=== PATIENT | female | born 1950 | race Caucasian/White ===

== ENCOUNTER 2016-03-15 08:00 | Outpatient (CLI) | payer BC ==
[2016-03-18 18:10] LABS: HCVGENO - HEP C QUANT HCV Not Detected IU/mL (())
== END 2016-03-15 23:59 | disposition home or self-care (01) ==
LOC: D.LABREF 08:00
PROVIDERS: Internal Medicine Gastroenterology
DX: B18.2 Chronic viral hepatitis C (principal)

== ENCOUNTER → 2016-08-26 12:18 | Outpatient (CLI) | payer BC | END | disposition home or self-care (01) | LOC: D.MAMMO 07-30 08:00 | DX: Z12.31 Encounter for screening mammogram for malignant neoplasm of breast (principal) ==

== ENCOUNTER → 2016-09-15 09:00 | Outpatient (CLI) | payer BC | END | disposition home or self-care (01) | LOC: D.RAD 08-31 08:30 → D.MRI 08-31 09:30 → D.RAD 09:00 | DX: M25.511 Pain in right shoulder (principal) ==

== ENCOUNTER 2016-10-08 18:08 | Observation (INO) | payer BC ==
[~2016-10-08] VITALS: Ht 165.1 cm; Wt 74.8 kg
--- NOTE | ~2016-10-08 | CN ---
PATIENT NAME:MICHELLE SAUCEDO MEDICAL RECORD: [id number] : 54 LOCATION:D. D.2115 ADMIT DATE: 10/08/16 ACCOUNT: [id number] CONSULTING PHYSICIAN: CHANO BURNS MD REFERRING PHYSICIAN: MOON MORRIS MD DATE OF CONSULTATION: 10/09/2016 Cardiology Consultation ADMITTING DIAGNOSES: 1. Angina. 2. Transient ischemic attack. 3. Hypertension. 4. Chronic NSAID use. HISTORY OF PRESENT ILLNESS: Mrs. Saucedo presented earlier to our office with increasing anginal symptomatology. She was set for cardiac catheterization next week. She now presents with 2 episodes of left-sided weakness that were approximately 5 minutes each. This was associated with hypertensive response with systolic blood pressures in the 190s. She is on Maxzide for blood pressure, no other agents. Her systolic blood pressure is now in the 120s. Each episode was associated with a tingling and left-sided weakness of the left upper extremity as well as lower extremity. Each episode resolved spontaneously after approximately 5 minutes. She presented to the Emergency Room and she has had no further episodes. Her troponin is normal. PHYSICAL EXAMINATION: GENERAL APPEARANCE: Well-nourished, well-developed, appears stated age. Level of distress, comfortable. PSYCHIATRIC: Mental status, alert, normal affect. Orientation, oriented to time, place and person. EYES: Lids and conjunctiva, noninjected. No discharge, no pallor. ENT: Lips, teeth, gums, normal dentition. Oropharynx, no cyanosis, no pallor. NECK: Carotid arteries, bilateral normal upstroke, no bruits, no thrills. JUGULAR VEINS: No jugular venous pressure or distention. CERVICAL LYMPH NODES: Nontender, nonenlarged. THYROID: Not enlarged. Nontender. No nodules. LUNGS: Respiratory effort, unlabored. CHEST: Normal curvature. No thoracic deformity. No chest wall tenderness. Percussion, resonant. Auscultation, clear. No wheezes, no rales, no rhonchi. CARDIOVASCULAR: Precordial exam, nondisplaced. No heaves or pericardial thrills. Rate and rhythm, regular. Heart sounds, normal S1, normal S2. No S3, no gallop, no rub. Systolic murmur, not heard. Diastolic murmur, not heard. EXTREMITIES: No cyanosis, no edema. Peripheral pulses, full and equal in all extremities, except as noted. No bruits appreciated. ABDOMEN: Soft, nondistended. Normal aorta. No bruit. Nontender. No masses. Liver, nontender, no hepatomegaly. Spleen, nontender, no splenomegaly. MUSCULOSKELETAL: No joint tenderness. No joint swelling. No erythema. NEUROLOGICAL: Normal gait, normal strength, normal tone. SKIN: Warm and dry. REVIEW OF SYSTEMS: The patient reports easy bruising but reports no swollen glands. The patient reports no fever, no night sweats, no significant weight gain, no significant weight loss. No significant exercise tolerance. The patient reports no dry eyes, no irritation, no vision change. Patient reports CONSULT REPORT [id number] MICHELLE SAUCEDO no difficulty hearing and no ear pain. Patient reports no frequent nose bleeds or nose and sinus problems. Patient reports on arm pain on exertion. No shortness of breath while lying down. No history of heart murmur. Patient reports no cough, no wheezing or coughing up blood. Patient reports no abdominal pain, no vomiting. Normal appetite. No diarrhea and not vomiting blood. No nausea and no constipation. Patient reports no incontinence. No difficulty urinating. No hematuria. No increased frequency. Patient reports no muscle aches. No weakness, no arthralgias, no back pain. No swelling of the extremities. Patient reports no abnormal mole, no jaundice, no rashes. Reports no loss of consciousness. No weakness and no numbness. No seizures, dizziness, or headaches. The patient reports no depression, no sleep disturbance, feeling safe in a relationship and no alcohol abuse. Patient reports on fatigue. Reports no runny nose or sinus pressure. No itching, no hives, and no frequent sneezing. OVERALL IMPRESSION: Continued chest pain, episodes of transient ischemic attack. We will proceed with coronary angiography. Further care depends upon findings of the angiography. TRANSINT:[id number] Voice Confirmation ID: [id number] DOCUMENT ID: [id number] CHANO BURNS MD CC: [id number] DICTATION DATE: 10/09/161108 NURSE MANAGER: 10/09/16 174 ADM IN [facility] [address] [place] [address]
--- NOTE | ~2016-10-08 | OP ---
PATIENT NAME: MICHELLE COOLEY MEDICAL RECORD: [id number] :54 LOCATION:D.M2 D.2115 ADMISSION DATE:10/08/16 SURGEON: CHANO BURNS MD DATE OF OPERATION: 10/09/2016 PROCEDURES: 1. PTCA stent LAD. 2. Intravascular ultrasound. 3. Left heart catheterization. 4. Selective coronary angiography. 5. Left ventriculogram. 6. Four-vessel carotid and vertebral angiography. INDICATION: Angina, coronary artery disease, TIA. PROCEDURE IN DETAIL: After informed consent was obtained, detailed explanation of risks, benefits as well as alternative therapies, the patient elected to proceed with angiogram and angioplasty. The right femoral area was prepped and draped in normal sterile fashion. The right femoral artery was cannulated via modified Seldinger technique with placement of 6-Romanian sheath. All catheters exchanged through this sheath. FINDINGS: Left four-vessel carotid subselection of each subclavian as well as the left carotid. Findings: Right side common internal and external carotids have mild plaquing, none greater than 20%, no flow-limiting stenosis. Vertebral arteries devoid of disease. Left system: The common internal and external carotids have mild plaquing, none greater than 20%, no flow-limiting stenosis. Vertebral arteries devoid of disease. LEFT HEART CATHETERIZATION: Left ventriculogram was performed in standard 30-degree NAVA view, reveals good cardiac wall motion throughout all segments. Overall ejection fraction estimated at 60%. SELECTIVE ANGIOGRAPHY: 1. Selective coronary angiography, left main showed no significant angiographic disease. 2. Left anterior descending has 80% stenosis in the mid vessel, otherwise only mild irregularities. 3. Left circumflex shows moderate irregularities, but no flow-limiting stenosis. 4. Right coronary has 60% stenosis in the proximal vessel confirmed by intravascular ultrasound. PTCA STENT OF THE LAD: The stent used is a 3.0 x 14 mm BioFreedom stent, this was a 12-mm lesion in 3-0 vessel with DAYDAY 3 flow before and after intervention. Result was 0% residual stenosis. OVERALL IMPRESSION: Successful percutaneous transluminal coronary angioplasty stent of the left anterior descending going from 80% initial stenosis to 0% residual stenosis. TRANSINT:[id number] Voice Confirmation ID: [id number] DOCUMENT ID: [id number] OPERATIVE REPORT [id number] MICHELLE COOLEY CHANO BURNS MD CC: [id number] DICTATION DATE: 10/09/16 1417 REPAIRER FINISHED METAL: 10/09/162131 ADM IN [place] [id number] [place] [id number]
--- NOTE | ~2016-10-08 | EC ---
PATIENT:MICHELLE COOLEY DATE OF SERVICE: 10/08/16 SEX: F MEDICAL RECORD: [id number] DATE OF : 54 LOCATION:D.M2 D.211 AGE OF PATIENT: 65 ADMISSION DATE: 10/08/16 REFERRING PHYSICIAN: INTERPRETING PHYSICIAN: CHANO FARMER MD ECHOCARDIOGRAM REPORT ECHO CHARGES 4 ECHO COMPLETE CLINICAL DIAGNOSIS: TIA HX OF HTN ECHOCARDIOGRAPHIC MEASUREMENTS (adult normal given) AC root (d.<3.7cm) 3.6 cm LV Septum d (<1.2 cm> 1.2 cm Valve Excursion 2.0 cm LV Septum (systole) 1.5 cm Left Atria (s.<4.0cm> 3.1 cm LVPW d(<1.2cm) 1.3 cm RV (d.<2.3cm) 3.1 cm LVPW (sytole) 1.9 cm LV diastole(<5.6CM) 5.0 cm MV E-F(>70mm/sec) cm LV systole 2.9 cm LVOT Diameter 2.0 cm MV exc.(>10mm) 1.4 cm Est.ejection fraction (50-75%) % Pericardial Effusion N DOPPLER: LVIT cm/sec A 100 cm/sec E 74.0 cm/sec LA cm/sec RVSP 33 mmHg LVOT 89 cm/sec AOP1/2T m/s Asc. Ao 115 cm/sec RVOT 93 cm/sec RA cm/sec PA 121 cm/sec AV Gradient Peak 8.38 mmHg AV Mean 3.86 mmHg AV Area 2.0 cm MV Gradient Peak 5.05 mmHg MV Mean 1.71 mmHg MV Area cm COMMENTS: Fuel Technician: Cristhian NGUYEN Emt Driver: 1 Dr. Farmer TAPE# PACS DATE OF SERVICE: 10/09/2016 Echocardiogram FINDINGS: 1. Left ventricular chamber size is within normal limits. Left ventricular systolic function is normal. Overall ejection fraction estimated at 60%. 2. Left atrium, right atrium and right ventricular chamber sizes are within normal limits. 3. Valvular structures have normal structure and motion. ECHOCARDIOGRAM REPORT [id number] MICHELLE COOLEY 4. Doppler interrogation only reveals mild tricuspid regurgitation. No other valvular insufficiency or stenosis. Pulmonary systolic pressure is preserved at 32 mmHg. 5. No evidence of pericardial effusion or left ventricular thrombus. 6. No cardiac source of neurologic emboli. TRANSINT:[id number] Voice Confirmation ID: [id number] DOCUMENT ID: [id number] CHANO FARMER MD CC: [id number] DICTATION DATE: 10/09/16 1308 EDITOR DICTIONARY: 10/09/161957 ADM IN [facility] [address] [place] [id number]
[2016-10-08 18:38] LABS: BASOPHILS 0.1 % (0-2); EOSINOPHILS 5.9 % (0-7); HEMATOCRIT 41.6 % (36.0-48.0); HEMOGLOBIN 14.7 g/dL (12-16); IMMATURE GRANULOCYTES 0.2 % (0-5); LYMPHOCYTES 46.2 % (15-50); MCH 30.1 pg (26.0-34.0); MCHC 35.3 g/dL (31.0-37.0); MCV 85.2 fL (80.0-100.0); MEAN PLATELET VOLUME 10.3 fL (7.4-10.4); MONOCYTES 7.6 % (2-11); PLATELET COUNT 182 10x3/uL (130-400); RBC 4.88 10x6/uL (4.00-5.40); RDW 12.8 % (11.5-14.5)
[2016-10-08 18:53] LABS: ALBUMIN 3.4 g/dL (3.4-5.0); ANION GAP 12.7 mmol/L (8-16); BILIRUBIN - TOTAL 0.62 mg/dL (0.2-1.3); CALCIUM 8.8 mg/dL (8.5-10.1); CARBON DIOXIDE 28.7 mmol/L (21.0-32.0); POTASSIUM - SERUM 4.4 mmol/L (3.5-5.1); PROTEIN - SERUM 7.5 g/dL (6.4-8.2)
[2016-10-08 19:00] VITALS: BP 169/74
--- NOTE | 2016-10-08 19:57 | NUR ---
REPORT RECEIVED FROM DIEUDONNE BETANCOURT.
--- NOTE | 2016-10-08 20:15 | NUR ---
ARRIVED TO FLOOR VIA WHEELCHAIR, ACCOMPANIED BY HOSPITAL STAFF AND FAMILY. PLACED ON TELEMETRY. CALL LIGHT IN REACH. WILL CONTINUE TO MONITOR. SEE NURSE ASSESSMENT.
--- NOTE | 2016-10-08 21:40 | NUR ---
SLY GUTIERREZ PAGED FOR SYMPTOMATIC HTN 169/74. AWAITING CALL BACK.
[2016-10-09] VITALS (7 sets, daily range): BP systolic 128–189; BP diastolic 65–94; Ht 165.1 cm; Wt 74.8 kg
[2016-10-09] MEDS ORDERED: IBUPROFEN800 MG PO (01:19)
[2016-10-09] MEDS ORDERED: SYNTHROID200 MC1 PO (01:19)
[2016-10-09] MEDS ORDERED: TRIAMT/HCTZ TAB 75- (01:21)
[2016-10-09] MEDS ORDERED: K-DUR20 MEQ PO (01:21)
[2016-10-09] MEDS ORDERED: PRAVASTATIN PO (01:23)
[2016-10-09] MEDS ORDERED: ZANAFLEX4 MG PO (01:24)
[2016-10-09] MEDS ORDERED: HYDROCODON-ACE1 EAC7 PO (01:26)
[2016-10-09] MEDS ORDERED: MELATONIN5 M3 PO (01:26)
[2016-10-09] MEDS ORDERED: BENADRYL25 MG PO (01:27)
[2016-10-09] MEDS ORDERED: KLONOPIN1 MG PO (01:28)
[2016-10-09] MEDS ORDERED: RESTORIL15 MG PO (01:28)
[2016-10-09] MEDS ORDERED: VITAMIN B-122500 MCG PO (01:29)
[2016-10-09] MEDS ORDERED: FISH OIL 1,2001 CAP PO (01:30)
--- NOTE | 2016-10-09 11:45 | NUR ---
TELEMETRY SR. CONSENTS SIGNED FOR [facility]. CALL LIGHT IN REACH. WILL CONT. PLAN OF CARE.
--- NOTE | 2016-10-09 13:28 | NUR ---
PRE-OPS GIVEN. TO SENIOR LIVING ADVISOR BY BED.
--- NOTE | 2016-10-09 14:48 | NUR ---
BACK FROM INFORMATICS CONSULTANT. VS WNL. RIGHT GROIN STABLE WITHOUT BLEEDING OR HEMATOMA. WILL MONITOR.
[2016-10-10] VITALS: BP 124/58
[2016-10-10 04:00] VITALS: BP 139/66
--- NOTE | 2016-10-10 05:44 | NUR ---
PT WITH ROUTINE LABS ORDERED FOR 0500 AND LABS ORDERED FOR STUDY ORDERED AT 0800. AGREED WITH FIELD MAP EDITOR THAT ALL LABS TO BE DRAWN AT 0800 D/T STUDY. PT UPDATED ON POC AND SHE VERBALIZES UNDERSTANDING.
--- NOTE | 2016-10-10 07:20 | NUR ---
PT SITTING UP IN BED ON COMPUTER DENIES ANY NEEDS WILL CONT TO MONITOR
[2016-10-10 08:10] LABS: BASOPHILS 0.1 % (0-2); EOSINOPHILS 4.9 % (0-7); HEMOGLOBIN 13.4 g/dL (12-16); IMMATURE GRANULOCYTES 0.1 % (0-5); LYMPHOCYTES 30.5 % (15-50); MCH 29.8 pg (26.0-34.0); MCHC 34.4 g/dL (31.0-37.0); MCV 86.7 fL (80.0-100.0); MEAN PLATELET VOLUME 9.4 fL (7.4-10.4); NEUTROPHILS 57.4 % (40-80); PLATELET COUNT 153 10x3/uL (130-400); WBC 7.3 10x3/uL (4.8-10.8)
[2016-10-10 08:39] VITALS: BP 150/66
[2016-10-10 08:39] LABS: ALBUMIN 3.1 g/dL (3.4-5.0); ALKALINE PHOSPHATASE 61 U/L (46-116); ALT (SGPT) 25 U/L (10-68); CALCIUM 8.4 mg/dL (8.5-10.1); CARBON DIOXIDE 27.9 mmol/L (21.0-32.0); CHLORIDE - SERUM 105 mmol/L (98-107); CKMB 1.4 U/L (0.0-3.6); CREATINE KINASE 255 UL (21-215); GLUCOSE 96 mg/dL (74-106); MAGNESIUM - SERUM 1.5 mg/dL (1.8-2.4); PHOSPHOROUS 3.7 mg/dL (2.5-4.9); POTASSIUM - SERUM 3.8 mmol/L (3.5-5.1); PROTEIN - SERUM 6.5 g/dL (6.4-8.2); SODIUM 140 mmol/L (136-145); THYROID STIMULATING HORMONE 0.07 uIU/mL (0.36-3.74); eGFR NON AFRICAN AMERICAN 59 mL/min (90-120)
[2016-10-10 08:44] LABS: CALC OSMOLALITY 280 mosm/kg (275-300); UREA NITROGEN 19 mg/dL (7-18)
[2016-10-10 08:45] LABS: TROPONIN-I 0.585 ng/mL (0.000-0.060)
--- NOTE | 2016-10-10 09:15 | NUR ---
TALKED WITH DR VILLALTA CARDIO DIRECTOR OF CUSTOMER SERVICE FOR [facility] ABOUT PT ELEVATED TROPONIN. SAID R/T HEART CATH YESTERDAY. NO FURTHER ACTION NEEDED.
--- NOTE | 2016-10-10 09:49 | NUR ---
PT WALKING AROUND FLOOR SELF NO COMPLAINTS
[2016-10-10 12:05] LABS: LDL-HDL RATIO 1.8 ratio (1.5-3.5)
[2016-10-10 13:00] VITALS: BP 160/62
[2016-10-10] MEDS ORDERED: PLAVIX75 MG PO (14:36)
[2016-10-10] MEDS ORDERED: METOPROLOL TART25 MG PO (14:36)
[2016-10-10] MEDS ORDERED: SYNTHROID200 MC1 PO (14:37)
--- NOTE | 2016-10-10 16:04 | NUR ---
WENT OVER DC PAPERWORK WITH PT PT VERBALIZES UNDERSTANDING DC PIV WITH CATH TIP INTACT DC TELE AND RETURNED TO ASSIGNER. SCRIPTS CALLED IN TO [facility]. PT GETTING DRESSED THEN WILL GO HOME WITH FRIEND.
== END 2016-10-10 16:34 | disposition home or self-care (01) ==
LOC: D.ER 18:08 → OBSVTIME 19:25 → D.M2 19:25
PROVIDERS: Emergency Medicine; ADMIT Family Medicine
DX: I66.01 Occlusion and stenosis of right middle cerebral artery (principal); I25.119 Atherosclerotic heart disease of native coronary artery with unspecified angina pectoris; I16.0 Hypertensive urgency; R00.2 Palpitations; E78.5 Hyperlipidemia, unspecified; E03.9 Hypothyroidism, unspecified; Z00.6 Encounter for examination for normal comparison and control in clinical research program

== ENCOUNTER → 2017-01-18 16:22 | Outpatient (CLI) | payer BC ==
[2016-10-09 12:57] VITALS: BMI 27.4
[~2017-01-18 16:22] MED LIST: ATARAX 25 MG TA25 MG PO; BAYER ASPIRIN325 MG PO; BENADRYL25 MG PO; CARDIZEM60 MG PO; ELIQUIS2.5 MG PO; FISH OIL 1,2001 CAP PO; FUROSEMIDE20 MG PO; HYDROCODON-ACE1 EAC7 PO; IBUPROFEN800 MG PO; K-DUR20 MEQ PO; KLONOPIN0.5 MG PO; MAXZIDE 75/501 TAB PO; MELATONIN5 MG PO; METOPROLOL TART25 MG PO; MULTIPLE VITAMI1 TA1 PO; OXYCODONE HCL5 MG PO; OXYCONTIN10 MG PO; PEPCID20 MG PO; PLAVIX75 MG PO; PRAVASTATIN SOD10 MG PO; RESTORIL15 MG PO; SYNTHROID200 MC1 PO; SYNTHROID300 MCG PO; VIBRAMYCIN 100100 MG PO; VITAMIN B-122500 MCG PO; VITAMIN C1000 MG PO; ZANAFLEX4 MG PO; ZANAFLEX6 MG PO
== END | disposition home or self-care (01) ==
LOC: D.LABREF 16:22
DX: M17.0 Bilateral primary osteoarthritis of knee (principal); Z11.8 Encounter for screening for other infectious and parasitic diseases

== ENCOUNTER 2017-01-20 10:00 | Inpatient (IN) | payer BC ==
[~2017-01-20] VITALS: Ht 162.6 cm; Wt 77.3 kg
[2017-01-20 03:09] LABS: BASOPHILS 0.2 % (0-2); EOSINOPHILS 6.5 % (0-7); HEMATOCRIT 41.5 % (36.0-48.0); HEMOGLOBIN 14.6 g/dL (12-16); IMMATURE GRANULOCYTES 0.1 % (0-5); MCH 29.7 pg (26.0-34.0); MCHC 35.2 g/dL (31.0-37.0); MCV 84.3 fL (80.0-100.0); MONOCYTES 7.3 % (2-11); NEUTROPHILS 45.9 % (40-80); PLATELET COUNT 168 10x3/uL (130-400); RBC 4.92 10x6/uL (4.00-5.40); RDW 13.1 % (11.5-14.5); WBC 8.3 10x3/uL (4.8-10.8)
[2017-01-20 03:13] LABS: ANION GAP 12.1 mmol/L (8-16); CARBON DIOXIDE 27.3 mmol/L (21.0-32.0); CREATININE - SERUM 1.2 mg/dL (0.6-1.3); POTASSIUM - SERUM 3.4 mmol/L (3.5-5.1)
[2017-01-20 03:18] LABS: INR 0.98 (0.85-1.17); PROTIME 12.6 SECONDS (11.6-15.0)
[2017-01-20 05:30] LABS: APPEARANCE CLEAR (CLEAR); BILIRUBIN NEGATIVE (NEGATIVE); COLOR YELLOW (YELLOW); GLUCOSE NEGATIVE (NEGATIVE); KETONE NEGATIVE (NEGATIVE); NITRITE POSITIVE (NEGATIVE); PROTEIN NEGATIVE (NEGATIVE); SPECIFIC GRAVITY 1.015 (1.005-1.020); UROBILINOGEN NORMAL (NORMAL)
[2017-01-20 05:31] LABS: BACTERIA MANY /hpf (NONE SEEN); EPITHELIAL CELLS 0-5 /hpf (0-5); RED CELLS - URINE 0-5 /hpf (0-5)
[2017-01-20 08:23] LABS: ANION GAP 18.5 mmol/L (8-16); BILIRUBIN - TOTAL 0.37 mg/dL (0.2-1.3); CALCIUM 9.3 mg/dL (8.5-10.1); CARBON DIOXIDE 25.9 mmol/L (21.0-32.0); CREATININE - SERUM 1.2 mg/dL (0.6-1.3); POTASSIUM - SERUM 3.4 mmol/L (3.5-5.1); PROTEIN - SERUM 7.9 g/dL (6.4-8.2)
--- NOTE | 2017-01-20 08:57 | NUR ---
SUSANNAH NOTE: PATIENT STATES DR. MAYFIELD AWARE OF ABNORMAL URINE RESULTS.
[~2017-01-20 10:00] MED LIST changes: -ATARAX 25 MG TA25 MG PO; -ELIQUIS2.5 MG PO; -OXYCODONE HCL5 MG PO; -OXYCONTIN10 MG PO; -VIBRAMYCIN 100100 MG PO
[2017-01-22 09:23] VITALS: BP 134/93; BMI 29.2
[2017-01-22 10:27] LABS: APPEARANCE CLEAR (CLEAR); BILIRUBIN NEGATIVE (NEGATIVE); COLOR YELLOW (YELLOW); EPITHELIAL CELLS RARE /hpf (0-5); GLUCOSE NEGATIVE (NEGATIVE); KETONE NEGATIVE (NEGATIVE); NITRITE NEGATIVE (NEGATIVE); PROTEIN NEGATIVE (NEGATIVE); RED CELLS - URINE RARE /hpf (0-5); SPECIFIC GRAVITY 1.015 (1.005-1.020); UROBILINOGEN NORMAL (NORMAL); WHITE CELLS - URINE 0-5 /hpf (0-5)
[2017-01-22 10:28] LABS: BACTERIA FEW /hpf (NONE SEEN)
--- NOTE | 2017-01-22 16:45 | NUR ---
RECEIVED TO ROOM 2210 FROM RECOVERY ROOM. VSS. EPIDURAL IN USE. DENIES ANY COMPLAINT OF PAIN AT THIS TIME. O2 2L NC IN USE. O2 SAT 100%. MILAN HOSE IN USE TO BILAT LEGS. DRESSINGS TO BILAT KNEES C/D/I. CHANDRA PATENT DRAINING YELLOW URINE. IV TO L FA PATENT. 1/2 NS INFUSING AT 100 CC/HR VIA PUMP.
[2017-01-22 16:48] VITALS: BP 113/58; BMI 29.2
--- NOTE | 2017-01-22 17:30 | NUR ---
WANTING TO FINISH DINNER BEFORE APPLYING CPM'S.
--- NOTE | 2017-01-22 19:00 | NUR ---
CPM ON PER AIDS
--- NOTE | 2017-01-22 19:15 | NUR ---
RECEIVED CARE FROM DAY NURSE. PT IN BED IN HIGH FOWLERS POSITION. CPM ON BILATERAL LEGS IN PLACE. EPIDURAL IN PLACE AND INFUSING. CONT PULSE OX IN PLACE. REPORTS NO NEEDS. CALL LIGHT AT SIDE. CHANDRA IN PLACE AND DRAINING CLEAR YELLOW URINE.
--- NOTE | 2017-01-22 19:30 | NUR ---
REPORTS SHAKING. HANDS COLD TO TOUCH. WARM BLANKET PROVIDED. ANASTHESIA NOTIFIED. VITALS STABLE. INSTRUCTED TO WATCH VITALS, SHAKING CAN OCCUR WITH EPIDURAL.
[2017-01-23] VITALS: BP 131/65
[2017-01-23 04:00] VITALS: BP 127/46
[2017-01-23 04:42] LABS: HEMATOCRIT 36.3 % (36.0-48.0); HEMOGLOBIN 12.7 g/dL (12-16); MCH 29.4 pg (26.0-34.0); MEAN PLATELET VOLUME 9.4 fL (7.4-10.4); RBC 4.32 10x6/uL (4.00-5.40); WBC 11.8 10x3/uL (4.8-10.8)
--- NOTE | 2017-01-23 05:44 | NUR ---
ASSESSED, PT IS ASLEEP WITH EASY RESPIRATIONS AND NO DISTRESS NOTED. DRESSING TO KNEE IN PLACE AND CLEAN. PILLOW HUGGED UP TO CHEST. THE BED IS LOW, RAILS UP X'S 2 WITH THE CALL LIGHT AT HAND.
--- NOTE | 2017-01-23 06:12 | OP ---
PATIENT NAME: MICHELLE COOLEY MEDICAL RECORD: [id number] :54 LOCATION:D.MS [place]2210 ADMISSION DATE:01/22/17 SURGEON: MOON MAYFIELD DO DATE OF OPERATION: 01/22/2017 PROCEDURE PERFORMED: Bilateral total knee arthroplasties. PREOPERATIVE DIAGNOSIS: Severe end-stage bilateral knee osteoarthritis. POSTOPERATIVE DIAGNOSIS: Severe end-stage bilateral knee osteoarthritis. INDICATIONS: Ms. Cooley is a 66-year-old female who has been treating this knee osteoarthritis for quite sometime. She has had everything conservative including injections and she was tired of it affecting her activities of daily living. When she got to the point where injections were not helping, she decided she wanted both knees done at the same time. I informed the patient I really do not like to do that, but at her behest, she wanted them done and we proceeded for with that. She was informed of the risks and benefits including a longer recovery time and high risk of infection and all the other risks that come along with doing both knees at the same time and she is okay with that. DESCRIPTION OF PROCEDURE: The patient was given epidural by anesthesia in the preoperative area and taken to the operative suite and laid in the supine position, given general anesthetic, given 1.25 grams of vancomycin preoperatively, both lower extremities were prepped and draped in a sterile fashion. A timeout was performed, everyone was in agreement of correct patient and were doing bilateral total knees. Once this was done, time out was performed, everyone was in agreeance. We commenced with the left knee. The incision was marked out with a marker and then the skin was covered with Ioban. The incision commenced in the midline down to the capsule. The Aquamantys was used to see any bleeders. This was done throughout the procedure. A capsulotomy was made with a new knife and a medial parapatellar approach. The patella was then everted and milled down in order to put the patella prosthesis and was calipered, seen to have adequate bone stock. Once this was done, the femur was exposed placing Hohmann retractors on either side of the femur and the distal femur was cut to 11 mm. Attention was then drawn to the tibia. The tibia was then cut as well 4 mm. After this was done, the knee was brought into an extended position and the menisci were cleared out of medial and lateral sides. Once this was done, the extension block was put into the knee and seemed to be fit well and the knee was not hyperextended. After this was done, the knee was flexed up and the femur was noted to be 62.5 and it seemed to have good coverage mediolateral as well. Then, when the 4-in-1 cutting block was placed on the left femur and the femur was cut, the anterior cut first and then the chamfer cut anteriorly, then posterior cut, posterior chamfer cut. This was then removed and then the bone cuts were removed as well. After this was done, the trial was put on the femur and then the tibia was put into place with a 10 poly, it was put through range of motion and the external rotation was marked on the tibial tray, this was then removed as well as the femur. Knee was brought into extension and the patella was drilled. After the patella was drilled, the knee was brought up into flexion and the tibia was sized to be 71. A 71 was then put into place and then punched. After it was punched and drilled, the tibia and femur were thoroughly irrigated, the cement was being mixed. We then put the cement in the tibia itself and then on the tibial prosthesis and then that was impacted onto the tibia. Excess cement was removed. As this was done, the tourniquet back up to the beginning and left lower extremity was OPERATIVE REPORT [id number] MICHELLE COOLEY exsanguinated with an Esmarch and the tourniquet was let up prior to the incision and back down to the tibia. After excess cement was taken off the tibia, it was impacted again and further excess cement was removed. The femur prosthesis of 60.5 was then put into place and a 10 poly was put in between them around the tibia and the knee was brought into extension, rested on the Jose stand. The patella was everted and the patella was then put into place with cement on either side of the patella prosthesis and the squeezer was put on this. The patient was given a gram of TXA at this point and the tourniquet was let down. Any bleeders were then cauterized with the Aquamantys very thoroughly as the cement dried. Once the cement was dried, we ranged the knee and tested for stability. A 10 poly seemed to be the perfect fit for this patient in the left knee. Tourniquet was let down at 50 minutes on the left, and the trial poly was removed, and the 10 E poly was put into place and the locking mechanism was put in place on that on the tibial tray. The wound was then thoroughly irrigated and dried well and Ivy was put into the knee joint itself. The knee was then brought into 90 degrees of flexion and the capsule was closed with #1 pop off Vicryl stitches in [id number] fashion. After this was done, the rest of the Ivy was placed on top of the capsule and the knee skin itself was closed with a 2-0 Vicryl in an inverted interrupted fashion and the skin was washed and thoroughly dried and a ZipLine was placed over that. Then, Adaptic, 4 x 4s, ABD, Webril, and Gary wrap were placed over that knee and then that knee was covered with three-quarter sheath. I then broke scrub and then returned and the right knee that had been previously prepped had been covered, and the left knee procedure was uncovered and reprepped with ChloraPrep. After this was done, the incision line was marked out and Ioban was placed over the knee. The skin was exposed. The right lower extremity was then exsanguinated with an Esmarch and the tourniquet was inflated. The tourniquet was up on the right side for 52 minutes total. After the tourniquet was inflated, the knee was brought into 90 degrees of flexion. The incision was made in the line. Again Aquamantys was used to coagulate any vessels. Careful dissection was made down to the capsule itself and a new knife was used to do a capsulotomy ,medial parapatellar approach. The knee was then brought into extension and some of the fat pad was removed and the patella was everted and milled down in order to fit the patellar prosthesis. Once this was done, the knee was brought into flexion and the femoral canal was entered with a drill and the distal femur cut was made at 11 mm. Following this, attention was then drawn to the tibia. Retractors were placed on either her side and the PCL retractor was put in place as well and a 4 mm of tibia was cut. This did not seem adequate and we cut 2 more off the tibia and the knee was brought into extension and with the knee in extension, the medial and lateral menisci were removed at that time and the Aquamantys was used in the posterior capsule to coagulate any bleeders that were there. After that was done, the extension block was put into place and it seemed to be we needed to cut a little more with tibial cutting device or guide was put back into place, cut 2 more off the tibia. Once this was done, the 10 extension block fit very well and was balanced medial and lateral with varus and valgus stress. The knee was then brought into flexion and the femur was measured to be a 62.5 as the other side was. The 4-in-1 cutting block was put into place at that time and the anterior cut was made as well as the chamfer cut anteriorly and posterior cut and posterior chamfer cut. The 4-in-1 cutting block was then removed and the knee was brought into extension. The patella was everted again and the holes were drilled for the patellar prosthesis. After this was done, the knee was brought into flexion and the tibia was exposed and measured to be 71 as well. A trial was put on the femur and the tibial tray was put into place and ranged and the external rotation was marked on the tibial tray. The tibia was then exposed having removed the trials of the femur and the OPERATIVE REPORT [id number] MICHELLE COOLEY L tibia and a 71 tibial tray was seen to be the correct one and this was put into place and punched and drilled while the cement was mixed. The tibia and femur were then thoroughly irrigated and cement was put into the tibia first and then on the tibial prosthesis and this was malleted into place and the excess cement was removed. Once this was done, the femur prosthesis was put on and the 10 poly was put in between the tibia and femur and this was brought into extension and the patella cement was put on the patella and patellar prosthesis and this was squeezed down with squeezer. All the excess cement was removed at that time from the patella as well as the tibia. After this was done, the tourniquet was let down and any bleeders that were seen were coagulated with the Aquamantys and documented. As the cement dried, the squeezer of the toe was removed and the 10 poly was put in place, seemed to be well balanced, and had a well balanced knee. No instability was noted in extension or flexion and seemed to be a very good fit. The 10 E-poly was then put into place after the tibial 10 trial was removed. After that, the E-poly was put in place with locking mechanism, was put on the tibial poly and the bar was locked into place. Again, the knee was thoroughly irrigated after this and dried well and the Ivy was put into the knee joint. The knee was brought into 90 degrees of flexion. The capsule was then closed with #1 Vicryls in [id number]-es-rmicn fashion. The top of the capsule was then irrigated and dried and the rest of the Ivy was put on that. The skin was closed with 2-0 Vicryl in inverted interrupted fashion. The tourniquet on this side again was up for 52 minutes. After the skin was closed with 2-0 Vicryl in inverted interrupted fashion, the skin was cleaned with a wet lap and then dried very thoroughly and a ZipLine was placed over the incision and then Adaptic, 4 x 4s, ABD, Webril, and Gary wrap were placed over the knee. The drapes were then taken down and knee high MILAN hose was placed on bilateral lower extremities. The patient was then awakened and taken to recovery in stable condition. Blood loss approximately 200 mL. TRANSINT:[id number] Voice Confirmation ID: [id number] DOCUMENT ID: [id number] MOON MAYFIELD DO at 0612 CC: [id number] DICTATION DATE: 01/22/17 1555 MONEY COUNTER: 01/22/17 1850 ADM IN [place] [id number] [place] [address]
--- NOTE | 2017-01-23 07:50 | NUR ---
PT AOX4 RESP EVEN AND NONLABORED PT DENIES NEEDS AT THIS TIME IV TO LEFT FOREARM PATENT AND INTACT AT THIS TIME SRX2 BED AT LOWEST SETTING CALL LIGHT WITHIN REACH WILL CONTINUE TO MONITOR
[2017-01-23 08:45] VITALS: BP 111/52
[2017-01-23 13:33] VITALS: BP 90/43
[2017-01-23 13:52] VITALS: Ht 162.6 cm; Wt 77.3 kg
[2017-01-23 16:45] VITALS: BP 117/44
--- NOTE | 2017-01-23 19:15 | NUR ---
RECEIVED CARE FROM DAY NURSE. REPORTS NO NEEDS.
--- NOTE | 2017-01-23 19:30 | NUR ---
PLACED ON CPM'S PER AIDS.
[2017-01-23 20:00] VITALS: BP 137/65
[2017-01-24] VITALS: BP 88/40
--- NOTE | 2017-01-24 03:00 | NUR ---
PT RESTING QUIETLY, EYES CLOSED. RESP EVEN, UNLABORED. IV INFUSING. CHANDRA CATH. NO DISTRESS NOTED. CONTINUE CONTINUOUS DRIER OPERATOR'S PLAN OF CARE.
[2017-01-24 04:00] VITALS: BP 101/60
[2017-01-24 06:17] LABS: HEMATOCRIT 33.7 % (36.0-48.0); HEMOGLOBIN 11.7 g/dL (12-16); MCH 29.8 pg (26.0-34.0); MCHC 34.7 g/dL (31.0-37.0); MEAN PLATELET VOLUME 9.7 fL (7.4-10.4); RBC 3.92 10x6/uL (4.00-5.40); RDW 13.6 % (11.5-14.5); WBC 11.1 10x3/uL (4.8-10.8)
--- NOTE | 2017-01-24 08:15 | NUR ---
AWAKE AND ALERT. ORIENTED X3. NO C/O AT THIS TIME. LUNGS ARE CLEAR BILATERALY, NO COUGH NOTED. REPORTED USE IF IS INSTRUCTED. SKIN IS INTACT WITHOUT REDNESS EXCEPT INCISIONS TO BILATERAL KNEES. WHICH HAVE A DRY INTACT DRESSING IN PLACE. IV TO LEFT FOREARM IS PATNET WITHOUT REDNESS AT INSERTION SITE. TEDS IN PLACE. ON CPM AT THIS TIME. CHANDRA PATENT WITH CLEAR YELLOW URINE. DENIES NEEDS.
[2017-01-24 09:11] VITALS: BP 129/49
--- NOTE | 2017-01-24 10:45 | NUR ---
VERY LITTLE RELIEF WITH USE OF OXY CONDONE. GIVEN 15MG TORADOL SLOW IVP FOR PAIN LEVEL 8. WILL MONITOR.
[2017-01-24 11:59] VITALS: BP 121/43
--- NOTE | 2017-01-24 12:00 | NUR ---
SLIGHT ELEVATIONS IN TEMP. GIVEN 1GM TYLENOL IV FOR PAIN MANAGEMENT WELL ELEVATIONS IN TEMP WILL MONITOR.
--- NOTE | 2017-01-24 12:55 | NUR ---
REQUESTED AND GIVNE 10MG OXY PO FOR C/O BILATERAL KNEE PAIN LEVEL 8. WILL MONITOR.
--- NOTE | 2017-01-24 12:55 | NUR ---
ATE MOST OF LUNCH. ASSISTED BACK TO BED PER THERAPY. REQUESTED AND GIVEN 10MG OXY IR PO FOR PAIN LEVEL 6. WILL MONITOR.
[2017-01-24 16:19] VITALS: BP 99/38
--- NOTE | 2017-01-24 19:15 | NUR ---
RECEIVED CARE FROM DAY NURSE. PT IN BILATERAL CPM. REPORTS NO NEEDS. CALL LIGHT AT SIDE. IV INFUSING TO PATENT LEFT FA.
[2017-01-24 20:00] VITALS: BP 132/52
--- NOTE | 2017-01-25 03:23 | NUR ---
LYING IN BED WITH EYES CLOSED. RESP EVEN AND UNLABORED. CALL LIGHT AT SIDE. HEELS BRIDGED ON PILLOWS. ICE TO BILATERAL KNEES. SCD'S IN PLACE.
[2017-01-25 09:57] VITALS: BP 98/50
[2017-01-25 12:57] VITALS: BP 124/51
--- NOTE | 2017-01-25 15:31 | NUR ---
Rehab Prescreening Consult recieved and the patient was visited. She meets IRF criteria and agrees to participate in the required therapy. She is a [employer] employee with [facility] insurance that will require a preauth as well as administrative approval. [facility] has initiated the preauth and faxed the information to [facility] for their review. The CM will obtain the approval from administration. Carrol Schafer RN Clinical Liaison, [facility]
--- NOTE | 2017-01-25 15:39 | NUR ---
ORDER RECEIVED THIS AM FOR ACUTE REHAB. REFERRAL TO [facility]UTE [facility]. LENO GRADY, REHAB SCREENER, CAME TO SPEAK WITH THE PATIENT. SHE WAS OOB IN THE CHAIR. SHE IS IN AGREEMENT WITH THE PLAN. TC TO DONOVAN PALUMBO, CASE MANGEMENT MULLING MACHINE OPERATOR, BY KOFFI GONZALEZ RN CM REGARDING AUTH FROM CFO [facility], FOR ACUTE REHAB AT [facility]. AWAIT APPROVAL.
[2017-01-25 16:31] VITALS: BP 127/59
--- NOTE | 2017-01-25 19:15 | NUR ---
RECIEVED SHIFT REPORT. PT IS LYING IN BED. ALERT AND ORIENTED AND ABLE TO VERBALIZE NEEDS. IV IS PATENT AND SALINE LOC AT THIS TIME. BILATERAL CPM'S ON. CHANDRA IS DRAINING URINE BY GRAVITY. DRESSINGS TO BILATERAL KNEE'S C/D/I. PT STATES PAIN IS 10/10. PT REQUESTING PAIN MEDICATION PRN FOR PAIN 10/10. NO FURTHER NEEDS ARE VOICED AT THIS TIME. WILL CONTINUE TO MONITOR. SIDE RAILS ARE UP X 2. BED IS IN LOWEST POSITION. BED ALARM ON FOR SAFETY. CALL LIGHT IN REACH.
[2017-01-25 20:00] VITALS: BP 138/65
--- NOTE | 2017-01-25 21:51 | NUR ---
SHIFT ASSESSMENT COMPLETED. NIGHT MEDS GIVEN WITH NO PROBLEMS. PT REQUESTING TO HAVE SCD'S OFF FOR A WHILE LONGER. NO FURTHER NEEDS AT THIS TIME. WILL MONITOR. SIDE RAILS X 2. BED LOW. BED ALARM ON. CALL LIGHT IN REACH.
[2017-01-26 04:00] VITALS: BP 112/55
[2017-01-26 06:38] LABS: BASOPHILS 0.1 % (0-2); EOSINOPHILS 5.3 % (0-7); HEMATOCRIT 32.6 % (36.0-48.0); HEMOGLOBIN 11.7 g/dL (12-16); IMMATURE GRANULOCYTES 0.3 % (0-5); LYMPHOCYTES 26.7 % (15-50); MCH 30.5 pg (26.0-34.0); MCHC 35.9 g/dL (31.0-37.0); MCV 84.9 fL (80.0-100.0); MEAN PLATELET VOLUME 9.9 fL (7.4-10.4); MONOCYTES 8.8 % (2-11); NEUTROPHILS 58.8 % (40-80); PLATELET COUNT 154 10x3/uL (130-400); RBC 3.84 10x6/uL (4.00-5.40); RDW 13.2 % (11.5-14.5)
[2017-01-26 06:42] LABS: ANION GAP 11.5 mmol/L (8-16); CALCIUM 8.3 mg/dL (8.5-10.1); CARBON DIOXIDE 27.7 mmol/L (21.0-32.0); POTASSIUM - SERUM 3.2 mmol/L (3.5-5.1)
--- NOTE | 2017-01-26 07:00 | NUR ---
REPORT RECIEVED ASSUMED CARE. PATIENT IN BED WITH IV INTACT. NO COMPLAINTS AT THIS TIME. CALL LIGHT WITHIN REACH.
--- NOTE | 2017-01-26 07:00 | NUR ---
REPORT RECIEVED ASSUMED CARE. PATIENT IN BED WITH IV INTACT. NO COMPLAINTS AT THIS TIME. CALL LIGHT WITHIN REACH.
--- NOTE | 2017-01-26 08:00 | NUR ---
ASSESSMENT COMPLETE, VS STABLE. NO COMPLAINTS AT THIS TIME. IV INTACT. CALL LIGHT WITHIN REACH. REFUSES BSCDS.
[2017-01-26 08:45] VITALS: BP 141/62
--- NOTE | 2017-01-26 11:45 | NUR ---
PATIENT UP IN CHAIR WITH NO COMPLAINTS. TEDS ON. FRIEND AT BEDSIDE. CALL LIGHT WITHIN REACH.
--- NOTE | 2017-01-26 12:15 | NUR ---
AYSHA NOTE: AYSHA SPOKE WITH DONOVAN PALUMBO AND SHE STATED SHERRY HUA APPROVED IP REHAB FOR PATIENT.
[2017-01-26 12:41] VITALS: BP 134/62
[2017-01-26] MEDS ORDERED: ELIQUIS2.5 MG PO (13:44)
[2017-01-26] MEDS ORDERED: ATARAX 25 MG TA25 MG PO (13:44)
[2017-01-26] MEDS ORDERED: OXYCONTIN10 MG PO (13:45)
[2017-01-26] MEDS ORDERED: OXYCODONE HCL5 MG PO (13:45)
[2017-01-26] MEDS ORDERED: VIBRAMYCIN 100100 MG PO (13:46)
--- NOTE | 2017-01-26 14:48 | NUR ---
Per Fax from Mariam at [facility]. Auth'd 7 days for acute inpatient rehab. Clinical U/D due on 02/01/17. or # [phone]. Auth # [id number]. Carrol Schafer RN Clinical Liaison, Rehab
--- NOTE | 2017-01-26 15:42 | NUR ---
Patient Name: MICHELLE COOLEY Admission Status: Elective Accout number: [id number] Admission Date: 01-22-2017 : 1950 Admission Diagnosis:BILATERAL PRIMARY OSTEOARTHRITIS OF KNEE Attending: MOON MAYFIELD Current LOS: 4 Anticipated DC Date: Planned Disposition: Inpatient Rehab Primary Insurance: [employer] [facility] Discharge Planning Comments: CM MET WITH PATIENT REGARDING D/C NEEDS AND PLANS. PATIENT IS DISCHARGING TODAY TO REHAB AT. PATIENT HAS NO STEPS OR STAIRS AT HOME. PATIENT HAS A WALKER AT HOME IF NEEDED. PATIENTS PCP IS DR. CAMARGO AND PHARMACY IS [facility]. CM WILL CONTINUE TO FOLLOW PATIENT WITH D/C NEEDS AND PLANS. PCP DR. CAMARGO [facility]- [phone] [facility] [phone] Business Segment Manager: [place] Is the patient Alert and Oriented? Yes 0 * How many steps to enter\exit or inside your home? 0 0 * PCP DR. CAMARGO 0 * Pharmacy [facility] 0 * ADLs Independent 0 * Equipment Walker 0 * List name and contact numbers for known caregivers / representatives who currently or will assist patient after discharge: [facility] [phone] 0 * Community resources currently utilized None 0 * Additional services required to return to the preadmission environment? Yes 0 * Can the patient safely return to the preadmission environment? Yes 0 * Has this patient been hospitalized within the prior 30 days at any hospital? No 0 Grand Total: 0
--- NOTE | 2017-01-26 16:55 | NUR ---
OT NOTE: PT COMPLETED BED MOB WITH INCREASED TIME TO COMPLETE TASK, PT COMPLETED BUE AROM EXS. THANK YOU, MARYANN GUO/Angelina
--- NOTE | 2017-01-26 17:00 | NUR ---
PATIENT DRESSING TO BILATERAL KNEES CHANGED. BOTH KNEE INCISIONS CLEAN AND DRY. SUTURES INTACT. NO SIGNS OF INFECTION. TELFA AND TEGADERM APPLIED PER DR. MAYFIELD. CHANDRA REMOVED. NO COMPLAINTS. TOLERATED WITH SMALL AMOUNT OF PAIN. CALL LIGHT WITHIN REACH.
== END 2017-01-26 19:21 | DRG 462 ==
LOC: D.SDCHOLD 01-22 08:24 → D.MS 01-22 08:24 → D.SDCHOLD 01-22 08:45 → D.MS 01-22 15:59
PROVIDERS: Anesthesiology; Family Medicine; ADMIT Orthopaedic Surgery
PROC: 0SRC0J9 Replacement of Right Knee Joint with Synthetic Substitute, Cemented, Open Approach (ICD-10-PCS; 2017-01-22)
PROC: 0SRD0J9 Replacement of Left Knee Joint with Synthetic Substitute, Cemented, Open Approach (ICD-10-PCS; principal; 2017-01-22 11:00)
DX: M17.0 Bilateral primary osteoarthritis of knee (principal); I10 Essential (primary) hypertension; E03.9 Hypothyroidism, unspecified

== ENCOUNTER 2017-01-26 18:57 | Inpatient (IN) | payer BC ==
[~2017-01-26] VITALS: Ht 162.6 cm; Wt 77.1 kg
[~2017-01-26 18:57] MED LIST changes: +ATARAX 25 MG TA25 MG PO; +ELIQUIS2.5 MG PO; +OXYCODONE HCL5 MG PO; +OXYCONTIN10 MG PO; +VIBRAMYCIN 100100 MG PO
[2017-01-26 19:30] VITALS: BP 133/57
[2017-01-26 19:36] VITALS: BP 133/57; BMI 29.2
--- NOTE | 2017-01-26 19:45 | NUR ---
PT IN BED WITH HOB UP FOR COMFORT. VISITORS AT BEDSIDE. POST OP DAY 3. CPM MACHINE TU USE 6HRS DAILY. ABOVE KNEE MILAN HOSE ON. TRAPEZE. CONTACTS AND DENTUES. NO O2. NO IV. LBM 01/21/17. CHANDRA CATH DC'D EARLIER TODAY PT HAS NOT VOIDED. BED IN LOWEST POSITION AND CALL LIGHT WITHIN REACH.
--- NOTE | 2017-01-26 20:50 | NUR ---
PATIENT IN BED. DENIES CURRENT NEEDS. ADMISSION ASSESSMENT CURRENTLY BEING CONDUCTED BY SUSAN BETANCOURT.
--- NOTE | 2017-01-26 21:45 | NUR ---
ASSISTED PT WITH CPM MACHINES.
--- NOTE | 2017-01-26 22:00 | NUR ---
PT ATTEMPTED TO VOID USING BED DAVALOS. PT HAS NOT VOIDEED SINCE DC OF CHANDRA CATH ON MS PT STATED AROUND "3:30PM."
--- NOTE | 2017-01-26 22:18 | NUR ---
PT STILL HAS 3HRS TO DO FOR CPM MACHINE. CALLED MED SURG AND SILVIO BETANCOURT STATED "WE'LL HAVE SOMEONE BRING THEM DOWN."
--- NOTE | 2017-01-27 00:27 | NUR ---
PT TRIED TO VOID AND WAS UNABLE. WILL DO BLADDER SCAN.
--- NOTE | 2017-01-27 00:39 | NUR ---
BLADDER SCAN SHOWED 674ML. WILL IN AND OUT CATH PT.
--- NOTE | 2017-01-27 01:19 | NUR ---
900ML FROM IN AND OUT CATH. WHILE DOIN IN AND OUT CATH CPM'S MACHINES WERE BROUGHT DOWN FROM MS. ASKED PT AFTER I DID THE CATH SHE WOULD LIKE TO DO CPM MACHINES AND SHE STATED "NO."
--- NOTE | 2017-01-27 04:20 | NUR ---
PT IN BED WITH HOB UP FOR COMFORT. EYES CLOSED. CHEST RISING AND FALLING. BED IN LOWEST POSITION AND CALL LIGHT WITHIN REACH.
[2017-01-27 07:34] LABS: BASOPHILS 0.1 % (0-2); EOSINOPHILS 4.6 % (0-7); HEMATOCRIT 33.4 % (36.0-48.0); HEMOGLOBIN 11.7 g/dL (12-16); IMMATURE GRANULOCYTES 0.5 % (0-5); LYMPHOCYTES 29.9 % (15-50); MCH 29.6 pg (26.0-34.0); MCV 84.6 fL (80.0-100.0); MEAN PLATELET VOLUME 8.7 fL (7.4-10.4); MONOCYTES 8.2 % (2-11); NEUTROPHILS 56.7 % (40-80); PLATELET COUNT 155 10x3/uL (130-400); RBC 3.95 10x6/uL (4.00-5.40); RDW 13.1 % (11.5-14.5); WBC 8.7 10x3/uL (4.8-10.8)
[2017-01-27 07:54] LABS: ANION GAP 10.2 mmol/L (8-16); CALCIUM 8.4 mg/dL (8.5-10.1); CARBON DIOXIDE 29.3 mmol/L (21.0-32.0); CREATININE - SERUM 1.1 mg/dL (0.6-1.3); POTASSIUM - SERUM 3.5 mmol/L (3.5-5.1)
[2017-01-27 08:48] VITALS: BP 119/61
[2017-01-27 13:16] VITALS: Ht 162.6 cm; Wt 77.1 kg
[2017-01-27 19:45] VITALS: BP 133/47
--- NOTE | 2017-01-27 20:00 | NUR ---
PT IN BED WITH HOB UP FOR COMFORT. VISITORS AT BEDSIDE. POST OP DAY 4. SCD'S AT NIGHT. TRAPEZE. CONTACTS AND DENTURES. NO O2. NO IV. BSC. CPM MACHINE. MILAN HOSE. BED IN LOWEST POSITION AND CALL LIGHT WITHIN REACH.
--- NOTE | 2017-01-27 23:45 | NUR ---
PATIENT RESTING IN BED, EYES CLOSED. HOB UP 45 DEGREES. CPM'S IN OPERATION TO BILAT LEGS AT THIS TIME. PATIENT APPEARS COMFORTABLE.
--- NOTE | 2017-01-28 00:05 | NUR ---
PT AWAKE, RATES PAIN 04/24, STATES "I FEEL A LOT BETTER", SCD'S PLACED ON AND WORKING PROPERLY, PT DENIES NEEDS, BED IN LOW POSITION, SIDE RAILS X 2, CALL LIGHT IN REACH
--- NOTE | 2017-01-28 03:24 | NUR ---
PT LYING IN BED. EYES CLSOED. CHEST RISING AND FALLING. BED IN LOWEST POSITON AND CALL LIGHT WITHIN REACH.
--- NOTE | 2017-01-28 05:18 | NUR ---
PT LYING IN BED. EYES CLOSED. RESPIRATIONS ARE EVEN AND UNLABORED. BED IN LOWEST POSITION AND CALL LIGHT WITHIN REACH.
--- NOTE | 2017-01-28 07:32 | NUR ---
RESTING QUIETLY IN BED. CALL LIGHT IN REACH. BED IN LOWEST POSITION.
[2017-01-28 08:08] VITALS: BP 117/58
--- NOTE | 2017-01-28 13:51 | NUR ---
SITTING UP IN W/C IN ROOM. DENIES NEEDS AT PRESENT
--- NOTE | 2017-01-28 16:33 | NUR ---
PATIENT ADMITTED TO REHAB FROM ACUTE FLOOR. DISCHARGE PLANS ARE FOR PATIENT TO RETURN HOME AT DISCHARGE. WILL CONTINUE TO FOLLOW WITH PATIENT.
--- NOTE | 2017-01-28 19:05 | NUR ---
PM ROUNDS MADE, PT UP TO BEDSIDE COMMODE WITH ASSISTANCE, PT INST TO USE CALLL LIGHT WHEN FINISHED, DORINA RUFFIN INFORMED THAT PT IS ON BEDSIDE COMMODE
[2017-01-28 19:30] VITALS: BP 133/58
--- NOTE | 2017-01-28 20:00 | NUR ---
PT BACK IN BED, ASSESSMENT PER FLOW SHEET, PT REPORTS FLATUS, NO BM AND VOIDING BY SELF WITH NO DIFFICULTY, PT RATES BILATERAL KNEE PAIN 09/24, INFORMED PT THAT I WILL ADM PAIN MED WHEN DUE, PT VERBALIZES UNDERSTANDING, DENIES NEEDS AT THIS TIME, BED IN LOW POSITION, SIDE RAILS X 2, CALL LIGHT IN REACH
--- NOTE | 2017-01-28 21:05 | NUR ---
PT UP ON BEDSIDE COMMODE AT THIS TIME, DORINA RUFFIN IN ROOM WITH PT
--- NOTE | 2017-01-28 22:52 | NUR ---
PT AWAKE, ADM 2100 MEDS AT THIS TIME, PT REPORTS PAIN /, OFFERED PT OXYCONTIN INSTEAD OF OXY IR, PT REQUESTED TO TRY THE OXYCONTIN, REPORTS THAT THE OXY IR IS NOT WORKING, PT SERVED FRESH H20 AND VANILLA PUDDING, DENIES FURTHER NEEDS, BED IN LOW POSITION, SIDE RAILS X 2, CALL LIGHT IN REACH
--- NOTE | 2017-01-29 00:05 | NUR ---
PT AWAKE, RATES PAIN 3/10, REPORTS THAT PAIN MED IS WORKING, SCD'S APPLIED AND WORKING PROPERLY, PT DENIES NEEDS AT THIS TIME, BED IN LOW POSITION, SIDE RAILS X 2, CALL LIGHT IN REACH
--- NOTE | 2017-01-29 01:45 | NUR ---
PT RESTING WITH EYES CLOSED, AROUSES TO SOFT VERBAL STIMULATION, OBTAINED TEMP, SEE FLOW SHEET, PT DENIES NEEDS OR PAIN AT THIS TIME, BED IN LOW POSITION, SIDE RAILS X 2, CALL LIGHT IN REACH
--- NOTE | 2017-01-29 02:20 | NUR ---
PT RESTING WITH EYES CLOSED, RESP QUIET, NO DISTRESS NOTED, LEFT UNDISTURBED AT THIS TIME, BED IN LOW POSITION, SIDE RAILS X 2, CALL LIGHT IN REACH
--- NOTE | 2017-01-29 04:27 | NUR ---
PT RESTING WITH EYES CLOSED, RESP QUIET, NO DISTRESS NOTED, LEFT UNDISTURBED AT THIS TIME, BED IN LOW POSITION, SIDE RAILS X 2, CALL LIGHT IN REACH, SCD'S CONTINUE ON AND WORKING PROPERLY
--- NOTE | 2017-01-29 05:16 | NUR ---
PT ADDICTIONS COUNSELOR LIGHT, PT PLACED ON BED DAVALOS, VOIDED APPROX 250 MLS, PT CLEANED UP WITH WET WARM WIPES, PT REQUESTS CPM, THIS RN AND SABA QUIROZ RN PLACED PT ON CPM, ADM PAIN MED PO PER MD ORDERS, SEE EMAR, PT DENIES FURTHER NEEDS, BED IN LOW POSITION, SIDE RAILS X 2, CALL LIGHT IN REACH
[2017-01-29 06:21] VITALS: BP 136/64
--- NOTE | 2017-01-29 06:25 | NUR ---
ADM 0600 MEDS PER MD ORDERS, VS OBTAINED, PT DENIES NEEDS AT THIS TIME, BED IN LOW POSITION, SIDE RAILS X 2, CALL LIGHT IN REACH
--- NOTE | 2017-01-29 06:51 | NUR ---
SHIFT REPORT TO DAY SHIFT
[2017-01-29 07:24] LABS: BASOPHILS 0.1 % (0-2); EOSINOPHILS 5.3 % (0-7); HEMATOCRIT 31.7 % (36.0-48.0); HEMOGLOBIN 11.1 g/dL (12-16); IMMATURE GRANULOCYTES 0.4 % (0-5); LYMPHOCYTES 22.6 % (15-50); MCH 29.9 pg (26.0-34.0); MCV 85.4 fL (80.0-100.0); NEUTROPHILS 61.6 % (40-80); PLATELET COUNT 183 10x3/uL (130-400); RBC 3.71 10x6/uL (4.00-5.40); RDW 13.1 % (11.5-14.5); WBC 9.3 10x3/uL (4.8-10.8)
[2017-01-29 07:34] LABS: CALCIUM 8.8 mg/dL (8.5-10.1); CARBON DIOXIDE 31.8 mmol/L (21.0-32.0); CREATININE - SERUM 1.1 mg/dL (0.6-1.3); POTASSIUM - SERUM 3.8 mmol/L (3.5-5.1)
--- NOTE | 2017-01-29 08:29 | NUR ---
SITTING UP EATING BREAKFAST. DENIES NEEDS.
[2017-01-29 09:34] VITALS: BP 128/62
--- NOTE | 2017-01-29 11:20 | NUR ---
Nutrition Follow Up: Pt stated that she continues with a poor appetite. She said that nothing sounds good to her. Pt is drinking Ensure. Pt is eating 40% meal avg of a regular diet. +BM 01/27/17. Wt stable. Meds noted including Lasix. Labs reviewed. Rec continue current diet. Will honor food preferences. Will continue to send Ensure TID. RD following.
--- NOTE | 2017-01-29 12:01 | NUR ---
EATING LUNCH IN ROOM. FRIEND IN ROOM WITH PT.
--- NOTE | 2017-01-29 18:13 | NUR ---
SITTING ON SIDE OF BED EATING SUPPER. DENIES INCREASED PAIN. PAIN MEDS GIVEN ORDERED AND ASK FOR. INCISION INTACT. NO DRAINAGE. NO S/S SWELLING OR INFECTION.
--- NOTE | 2017-01-29 19:45 | NUR ---
PT. IN BED WITH HOB UP FOR COMFORT AND IS WATCHING TV. ASSESSMENT COMPLETED. ASSISTED PT. TO BSC TO URINATE. PT. REQUESTING BED ALARM WAIVER FORM SO THAT IF SHE WANTS TO BE UP OR USE BSC SHE CAN. FORM WILL BE GIVEN FOR HER SIGNATURE. NO OTHER VOICED NEEDS AFTER PT. WAS REPOSITIONED IN BED FOR COMFORT. CALL LIGHT WITHIN REACH.
[2017-01-29 19:55] VITALS: BP 139/62
--- NOTE | 2017-01-29 23:10 | NUR ---
PT. IN BED WITH HOB UP FOR COMFORT AND IS AWAKE. PT. ON HER CELL PHONE AND ALSO HAS HER LAP TOP COMPUTER WITHIN REACH. NO VOICED NEEDS AT THIS TIME AND HER CALL LIGHT IS WITHIN REACH.
--- NOTE | 2017-01-30 03:03 | NUR ---
PT. IN BED WITH HOB UP FOR COMFORT. EYES CLOSED AND RESP. EVEN. CALL LIGHT WITHIN REACH.
[2017-01-30 08:00] VITALS: BP 117/63
--- NOTE | 2017-01-30 08:00 | NUR ---
SHIFT ASSMT COMPLETED.DENIES NEEDS.STATUS MUCH IMPROVED ON MOVING AND GETTING AROUND.SBA TO BSC NOTED.DRESSES SELF USING ADAPTIVE EQUIPMENT.
--- NOTE | 2017-01-30 12:00 | NUR ---
EATING LUNCH.DENIES NEEDS.
--- NOTE | 2017-01-30 16:00 | NUR ---
RESTING QUIETLY.PLAYING ON COMPUTER.
[2017-01-30 20:00] VITALS: BP 135/41
--- NOTE | 2017-01-30 20:16 | NUR ---
PT. IN BED WITH BILATERAL CPM'S ON AND HOB UP FOR COMFORT. PT. DENIES ANY NEEDS AT THIS TIME AND HAS HER CALL LIGHT WITHIN REACH.
--- NOTE | 2017-01-30 21:00 | NUR ---
PT IN BED WITH HOB UP FOR COMFORT. WATCHING TV. ALERT & ORIENTED. FEMALE VISITOR AT BEDSIDE. CPM'S TO BILATERAL LOWER EXTREMITIES IN PLACE AND ON. TRAPEZE. BED/CHAIR WAIVER. NO O2. NO IV. BED IN LOWEST POSIITON AND CALL LIGHT WITHIN REACH.
--- NOTE | 2017-01-31 01:00 | NUR ---
PT IN BED WITH HOB UP FOR COMFORT. EYES CLOSED. CHEST RISING AND FALLING. BED IN LOWEST POSTION AND CALL LIGHT WITHIN REACH.
--- NOTE | 2017-01-31 04:40 | NUR ---
PT IN BATHROOM. PT HAS BED/CHAIR ALARM WAIVER.
--- NOTE | 2017-01-31 08:00 | NUR ---
DENIES NEEDS.BREAKFAST GIVEN.DRSG TO KNEE'S IN PLACE.
[2017-01-31 08:43] VITALS: BP 118/70
--- NOTE | 2017-01-31 09:50 | NUR ---
PLACED ON CPM BILAT KNEE'S.
--- NOTE | 2017-01-31 12:00 | NUR ---
SITTING UP IN BED WITH CPM ON.
--- NOTE | 2017-01-31 13:00 | NUR ---
UP OOB TO SHOWER.COURT BAILIFF ASSISTING.
--- NOTE | 2017-01-31 19:17 | NUR ---
PT. IN BED WITH HOB UP FOR COMFORT. PT. WATCHING TV AND HAS NO VOICED NEEDS. CALL LIGHT IS WITHIN REACH.
--- NOTE | 2017-01-31 20:00 | NUR ---
PT IN BED WITH HOB UP FOR COMFORT. WATCHING TV. ALERT & ORIENTED. CPM'S TO BILATERAL LOWER EXTREMITIES IN PLACE AND ON. TRAPEZE. BED/CHAIR WAIVER. NO O2. NO IV. BED IN LOWEST POSITION AND CALL LIGHT WITHIN REACH.
[2017-01-31 20:29] VITALS: BP 131/54
--- NOTE | 2017-02-01 | NUR ---
PT LYING IN BED WITH HOB UP FOR COMFORT. EYES CLOSED. CHEST RISING AND FALLING. BED IN LOWEST POSITION AND CALL LIGHT WITHIN REACH.
--- NOTE | 2017-02-01 04:00 | NUR ---
PT LYING IN BED WITH HOB UP FOR COMFORT. EYES CLOSED. CHEST RISING AND FALLING. BED IN LOWEST POSITION AND CALL LGIHT WITHIN REACH.
[2017-02-01 07:11] LABS: BASOPHILS 0.1 % (0-2); EOSINOPHILS 3.6 % (0-7); HEMATOCRIT 33.4 % (36.0-48.0); HEMOGLOBIN 11.2 g/dL (12-16); IMMATURE GRANULOCYTES 1.1 % (0-5); LYMPHOCYTES 22.6 % (15-50); MCH 28.8 pg (26.0-34.0); MCHC 33.5 g/dL (31.0-37.0); MCV 85.9 fL (80.0-100.0); MEAN PLATELET VOLUME 9.1 fL (7.4-10.4); MONOCYTES 7.9 % (2-11); NEUTROPHILS 64.7 % (40-80); RBC 3.89 10x6/uL (4.00-5.40); RDW 13.1 % (11.5-14.5); WBC 8.4 10x3/uL (4.8-10.8)
[2017-02-01 07:18] LABS: PLATELET COUNT 274 10x3/uL (130-400)
[2017-02-01 07:23] LABS: CALCIUM 8.7 mg/dL (8.5-10.1); CARBON DIOXIDE 31.2 mmol/L (21.0-32.0); CREATININE - SERUM 1.2 mg/dL (0.6-1.3); POTASSIUM - SERUM 3.2 mmol/L (3.5-5.1)
--- NOTE | 2017-02-01 08:00 | NUR ---
SITTING UP IN BED EATING BREAKFAST. HAS CPM MACHINES ON X2. IS UP WALKING TO BATHROOM WITH WALKER.
[2017-02-01 08:53] VITALS: BP 107/50
--- NOTE | 2017-02-01 12:25 | NUR ---
SITTING UP IN W/C EATING LUNCH. PAIN MEDS GIVEN ORDERED AND REQUESTED.
--- NOTE | 2017-02-01 16:47 | NUR ---
CLINICALS FAXED TO MEDICAL MANAGEMENT AT [facility] AT AUTH # [id number] WITH A TENATIVE DISCHARGE DATE OF 02/05/17. FAX CONFORMATION RECIEVED
--- NOTE | 2017-02-01 20:10 | NUR ---
REST IN BED AND WATCH TV SHOW.
--- NOTE | 2017-02-01 21:45 | NUR ---
PATIENT'S PRIMARY NURSE CAME TO ME TO REPORT PATIENT REQUESTED A TOURNIQUET. WENT TO THAT HER MURSE DID NOT MISUNDERSTAND. PATIENT WANTS IT TO CLINICAL LABORATORY TECHNOLOGIST HER A BETTER FIRE INSPECTOR IN THE CAPS OF HER BEVERAGES. A TOURNIQUET WAS PROVIDED.
[2017-02-01 22:37] VITALS: BP 125/59
--- NOTE | 2017-02-02 01:56 | NUR ---
REST QUIETLY IN BED, CALL LIGHT IN REACH.
[2017-02-02 08:01] VITALS: BP 110/52
--- NOTE | 2017-02-02 10:06 | NUR ---
Nutrition Follow Up: Pt stated that her appetite remains fair. She said that she would like Ensure to be d/c. RD offered cafeteria menu and pt stated that she would like to order from that as an option. RD provided this to pt. Pt is eating 78% meal avg on a regular diet. +BM 02/01/17. Meds and labs reviewed. Rec continue current diet. Will provide cafeteria menu to pt. Will d/c Ensure. RD following.
--- NOTE | 2017-02-02 12:33 | NUR ---
SITTING UP IN ROOM EATING LUNCH. BANDAGES OFF BOTH KNEES AT PRESENT AT PT REQUEST. NO S/S INFECTION NOTED. USES WALKER FOR AMBULATION ASST.
--- NOTE | 2017-02-02 13:13 | RHP ---
PATIENT: MICHELLE COOLEY MEDICAL RECORD: [id number] ACCOUNT: [id number] LOCATION:[id number] : 54 ADMISSION DATE: 01/26/17 REHABILITATION HISTORY AND PHYSICAL EXAMINATION POST ADMISSION PHYSICIAN EXAMINATION POST-ADMISSION PHYSICAL EXAMINATION AND HISTORY AND PHYSICAL DATE OF ADMISSION: 01/26/2017 ADMITTING DIAGNOSES: Status post bilateral knee replacements, secondary to severe bilateral osteoarthritis. HISTORY OF PRESENT ILLNESS: The patient is a 66-year-old female patient admitted to inpatient rehab with severe end-stage bilateral knee osteoarthritis, status post bilateral knee arthroplasty. She has been treating this knee osteoarthritis for quite some time. She has had everything conservative done including an injection. She was tired of it affecting her activities of daily living. When she got to the point where injections were not helping, she decided she wanted both knees done at the same time. She was informed of the risks and benefits including a longer recovery time and high risk of infection and other risks that come along doing both knees at same time, and she was okay with that. On 01/22/2017, she went to the OR for bilateral total knees. Postop was complicated by T-max of 101.8, hypokalemia and pain. Previously, she was independent with ADLs and mobility without aid. She works multimedia coordinator, drives, and lives alone. Currently, she is moderate to max assist for ADLs and mobility, stable to ambulate short distances from bed to chair with max assist using a rolling walker, moderate assist for lower extremity management during supine to sit. Overall, balance is actually pretty good. Inpatient rehab would definitely be required to get her up and going in a timely fashion. Comorbidities include coronary artery disease status post stent, history of TIA, hypertensive urgency, palpitations, syncope, vertigo, chronic back pain, hyperlipidemia, post-procedural fever and hypertension. PAST MEDICAL HISTORY: Significant for vertigo, thyroid problems, history of hypertension and syncope, history of ulcers. PAST SURGICAL HISTORY: Includes gallbladder surgery, hysterectomy, thyroidectomy, colectomy and knee scopes. ALLERGIES: PENICILLINS, SULFA, CODEINE, ERYTHROMYCIN, CLINDAMYCIN, AND CEPHALOSPORINS. MEDICATIONS: Current medications include Maxzide 75/50 daily. She is on multivitamin daily, Synthroid 300 mcg daily, omega-3 one cap daily, vitamin B12 5000 mcg daily, vitamin C 1000 mg daily, tizanidine 4 mg q.8 hours p.r.n., Zanaflex 6 mg at bedtime. She is on Pravachol 10 mg at bedtime, Restoril 15-30 mg p.o. at bedtime p.r.n. insomnia, potassium 20 mEq b.i.d., OxyIR 5 mg q.4-6 hours as needed for pain. She is on oxycodone ER or OxyContin 10 mg b.i.d., Lopressor 25 mg b.i.d., melatonin 6 mg at bedtime, Atarax 50 mg q.6 hours p.r.n., Lasix 20 mg as needed for swelling, Pepcid 20 mg b.i.d. p.r.n. reflux, Vibramycin 100 mg b.i.d., Cardizem 60 mg t.i.d., Klonopin 0.5 mg b.i.d. and Eliquis 2.5 mg b.i.d. HABITS: No alcohol or tobacco use. HISTORY AND PHYSICAL [id number] MICHELLE COOLEY FAMILY HISTORY: Noncontributory. SOCIAL HISTORY: The patient wants to return back home and get back to her prior level of functioning. REVIEW OF SYSTEMS: GENERAL: Denies weakness or fatigue. HEENT: Denies cold, cough, or congestion. CARDIOVASCULAR: Denies chest pain. PHYSICAL EXAMINATION: VITAL SIGNS: Stable, afebrile. GENERAL: A somewhat obese female in no acute distress, alert upon exam. HEENT: Normocephalic and atraumatic. Mucosa moist. NECK: Supple, with no lymphadenopathy. LUNGS: Clear at this time. HEART: Regular rate and rhythm. ABDOMEN: Benign. EXTREMITIES: No clubbing, cyanosis or edema. NEUROLOGIC: Intact. SKIN: Her postop areas of both her knees appear appropriate at this time. LABORATORY DATA: White count is 8.7, H&H of 11.7 and 33.4, and platelet count was noted to be 155. Sodium is 132, potassium 3.5, BUN and creatinine of 22 and 1.1 and blood sugar was noted to be 116. ASSESSMENT: This 66-year-old female patient admitted to rehab with a working diagnosis of status post bilateral total knee replacements. The patient has potential to make improvement. We instituted the following multidisciplinary therapies including to, but not limited to physical, occupational, respiratory, speech, nutritional services, prosthetics and orthotics. Given her complex condition and risk for more complications, rehabilitation services cannot be provided at a lower level of care such as a [facility] facility. PLAN: 1. Admit to [facility] rehab for intensive inpatient therapy to include the following disciplines: A. Physical therapy to improve gait, all transfer skills and bed mobility to a modified independent level. B. Occupational therapy to improve activities of daily living to a modified independent level. C. Case management to assist with discharge planning and placement options. D. Nutrition to assist with nutritional needs. E. Rehabilitation nursing to assist in monitoring the patient's underlying medical conditions and to assist with any type of bowel or bladder management. 2. The patient's current medications and medical care will be continued. 3. The patient will be placed on standard fall precautions. 4. The patient's estimated length of stay is approximately 7-10 days. 5. We will watch for any signs of fever or infection. We will also continue on current activity level. We will continue on her anticoagulants and we will see again Wednesday morning and discuss with our care team at noon. TRANSINT:[id number] Voice Confirmation ID: [id number] DOCUMENT ID: [id number] HISTORY AND PHYSICAL [id number] MICHELLE COOLEY notes whether there has been none or any medical/functional change since admission: - No change since preadmission screen. ANABELA attests patient continues to be appropriate for IRF: - Continues to be appropriate. TOMY AGUERO MD at 1313 CC: [id number] DICTATION DATE: 01/27/17 0846 TIRE SORTER: 01/27/17 0934 ADM IN [facility] [address] [id number]
--- NOTE | 2017-02-02 15:05 | NUR ---
SITTING UP IN BED WATCHING TV. PAIN MEDS GIVEN ORDERED. CALL LIGHT IN REACH
--- NOTE | 2017-02-02 18:00 | NUR ---
RESTING QUIETLY IN BED WORKING WITH HER COMPUTER. DENIES NEEDS. CALL LIGHT IN REACH
--- NOTE | 2017-02-02 19:30 | NUR ---
PT RESTING IN BED TALKING WITH SOMEBODY ON HER LAPTOP. ALERT AND ORIENTED X 4. DENIES ACUTE DISCOMFORT AT THIS TIME. PT NOT HAPPY TO HAVE A MALE NURSE. SHE STATED: "THEY KNOW THAT IS NOT SUPPOSED TO HAPPEN." SHE WAS HAPPIER AFTER BEING TOLD WE HAD A FEMALE RN FIRST ASSIST TO TAKE CARE OF HER IF NEEDED TONIGHT. CPM'S ON MATTHEW KNEES AT THIS TIME. SR'S ARE UP X 2 IN BED. CALL LIGHT AND BEDSIDE TABLE ARE WITHIN EASY REACH.
[2017-02-02 21:55] VITALS: BP 120/57
--- NOTE | 2017-02-02 22:37 | NUR ---
PT RESTING IN BED WITH EYES OPEN. SWEATBAND DRUMMER REMOVING CPMS FROM BOTH LEGS AT THIS TIME. NO ACUTE DISTRESS NOTED.
--- NOTE | 2017-02-03 00:11 | NUR ---
PT AWOKE AND USED CALL LIGHT. SHE ASKED FOR AUGUSTIN'S ASSISTANCE.
--- NOTE | 2017-02-03 01:55 | NUR ---
RESTING QUIETLY IN BED, HOB UP 45 DEGREES. APPEARS COMFORTABLE.
--- NOTE | 2017-02-03 03:00 | NUR ---
RESTING IN BED WITH EYES CLOSED.
--- NOTE | 2017-02-03 05:16 | NUR ---
RESTING IN BED WITH EYES CLOSED.
--- NOTE | 2017-02-03 07:20 | NUR ---
PT REQ AND REC'D PRN OXY AND ATARAX AT THIS TIME. WCTM.
[2017-02-03 07:24] LABS: BASOPHILS 0.1 % (0-2); EOSINOPHILS 4.5 % (0-7); HEMATOCRIT 32.4 % (36.0-48.0); HEMOGLOBIN 10.8 g/dL (12-16); LYMPHOCYTES 30.9 % (15-50); MCH 28.4 pg (26.0-34.0); MCHC 33.3 g/dL (31.0-37.0); MCV 85.3 fL (80.0-100.0); MEAN PLATELET VOLUME 8.9 fL (7.4-10.4); MONOCYTES 8.3 % (2-11); NEUTROPHILS 55.2 % (40-80); PLATELET COUNT 260 10x3/uL (130-400); RDW 13.3 % (11.5-14.5); WBC 6.7 10x3/uL (4.8-10.8)
[2017-02-03 07:29] LABS: ANION GAP 9.8 mmol/L (8-16); CALCIUM 9.2 mg/dL (8.5-10.1); CARBON DIOXIDE 30.8 mmol/L (21.0-32.0); POTASSIUM - SERUM 3.6 mmol/L (3.5-5.1)
[2017-02-03 07:58] VITALS: BP 138/51
--- NOTE | 2017-02-03 09:49 | NUR ---
PT AM MEDS ADMINISTERED. PT DENIES NEEDS. WCTM.
--- NOTE | 2017-02-03 12:31 | NUR ---
PT REQ AND REC'D PRN PAIN MEDICATION AT THIS TIME. WCTM.
--- NOTE | 2017-02-03 13:30 | NUR ---
PT WALKING WITH THERAPIST AT THIS TIME, TOLERATING WELL. WCTM.
--- NOTE | 2017-02-03 14:13 | NUR ---
SPOKE WITH DR MAYFIELD. STATED HE WAS ON HIS WAY TO COME REMOVE SUTURES.
[2017-02-03] MEDS ORDERED: ELIQUIS2.5 MG PO (14:53)
--- NOTE | 2017-02-03 14:54 | NUR ---
DR MAYFIELD IN TO SEE PT. STATED HE WANTED ZIP LINES LEFT ON FOR 2-4 MORE DAYS. PT STATES UNDERSTANDING. WCTM.
[2017-02-03] MEDS ORDERED: ATARAX 25 MG TA25 MG PO (14:55)
[2017-02-03] MEDS ORDERED: OXYCODONE HCL5 MG PO (14:56)
--- NOTE | 2017-02-03 16:06 | NUR ---
CARE TEAM EETING: PATIENT PROGRESSING WELL IN THERAPY AND WILL DISCHARGE ON 02/04/17. DISCHARGE APPOINTMENTS WILL BE MADE AT THAT TIME. WILL CONTINUE TO FOLLOW WITH PATIENT AND WILL ASSIST WITH DISCHARGE NEEDS.
--- NOTE | 2017-02-03 16:16 | NUR ---
PT REQ AND REC'D PRN OXYCODONE AND ATARAX AT THIS TIME. WCTM.
--- NOTE | 2017-02-03 16:43 | NUR ---
PT LEFT ON THERAPUETIC PASS VIA ROLLING WALKER ASSISTED BY FRIEND.
--- NOTE | 2017-02-03 19:58 | NUR ---
PT. IN BED WITH HOB UP FOR COMFORT AND HAS JUST RETURNED TO ROOM AFTER BEING OUT ON PASS. PT. AMBULATED DOWN HALLWAY WITH WALKER AND SBA. CALL LIGHT WITHIN REACH.
--- NOTE | 2017-02-03 20:00 | NUR ---
PT IN BED WITH HOB UP FOR COMFORT. USING LAPTOP AND WATCHING TV. NO O2. NO IV. AMBULATES WITH WALKER. BED/CHAIR ALARM WAIVER. BILATERAL KNEE DRESSING C/D/I. BED IN LOWEST POSITION AND CALL LIGHT WITHIN REACH.
--- NOTE | 2017-02-03 20:20 | NUR ---
ASSISSTED PT WITH CPM'S.
--- NOTE | 2017-02-03 23:40 | NUR ---
TOOK OFF PT'S CPM'S WITH HELP OF SHAWNA CAM.
--- NOTE | 2017-02-04 03:40 | NUR ---
PT LYING IN BED WITH HOB UP FOR COMFORT. EYES CLOSED. CHEST RISING AND FALLING. BED IN LOWEST POSITION AND CALL LIGHT WITHIN REACH.
--- NOTE | 2017-02-04 06:10 | NUR ---
ASSISTED PT WITH CPM'S.
[2017-02-04 08:12] VITALS: BP 114/66
--- NOTE | 2017-02-04 08:15 | NUR ---
PT RESTING IN BED WITH EYES OPEN CALL LIGHT IN REACH WILL MONITER NO PROBLEMS AT THIS TIME
--- NOTE | 2017-02-04 09:30 | NUR ---
OXI IR GIVEN ORDERED FOR PAIN LEVEL OF 9/10 FOR PAIN TO BILATERAL KNEES WILL MONITER
--- NOTE | 2017-02-04 09:55 | NUR ---
PATIENT DISCHARGING HOME TODAY . WRITTEN SCRIPT GIVEN FOR OUTPATIENT THERAPY FOR WHEN SHE RETURNS FROM HER TRIP. PATIENT WILL MAKE FOLLOW UP APPOINTMENTS WITH DR. CAMARGO AND DR. MAYFIELD WHEN SHE RETURNS HOME. DISCHARGE RECORDS WITH FIM DATA HAS BEEN FAXED TO DR. CAMARGO WITH CONFORMATION RECIEVED
--- NOTE | 2017-02-04 13:50 | NUR ---
OXI IR GIVEN FOR 910 PAIN TO BILATERAL KNEES PER DR ORDER WILL MONITER
--- NOTE | 2017-02-04 14:04 | NUR ---
PT DISCHARGED TO HOME VIA WHEELCHAIR WITH FAMILY DISCHARGE SUMMARY AND MEDS REVIEWED WITH PT MEDS CALLED TO [facility] [address]
--- NOTE | 2017-02-04 15:40 | NUR ---
DISCHARGE CLINICALS FAXED TO MEDICAL MANAGEMENT AT [facility] , AUTH. # [id number] WITH CONFORMATIN RECEIVED
== END 2017-02-04 14:19 | disposition home or self-care (01) | DRG 554 ==
LOC: D.REHAB 18:57
PROVIDERS: ADMIT Emergency Medicine
DX: M17.0 Bilateral primary osteoarthritis of knee (principal); I25.10 Atherosclerotic heart disease of native coronary artery without angina pectoris; Z96.653 Presence of artificial knee joint, bilateral; E78.5 Hyperlipidemia, unspecified; R00.2 Palpitations; E03.9 Hypothyroidism, unspecified; R55 Syncope and collapse; R50.82 Postprocedural fever; I16.0 Hypertensive urgency; R42 Dizziness and giddiness; G89.29 Other chronic pain

== ENCOUNTER → 2017-10-28 12:48 | Outpatient (CLI) | payer BC ==
[2017-01-27 13:16] VITALS: BMI 29.2
== END | disposition home or self-care (01) ==
LOC: D.MRI 12:48
DX: M54.2 Cervicalgia (principal); M54.6 Pain in thoracic spine

== ENCOUNTER 2018-01-21 05:00 | Day surgery (SDC) | payer BC, MEDICARE ==
[2018-01-19 10:04] LABS: HEMATOCRIT 44.4 % (36.0-48.0); HEMOGLOBIN 16.1 g/dL (12-16); MCH 30.4 pg (26.0-34.0); MCHC 36.3 g/dL (31.0-37.0); MCV 83.8 fL (80.0-100.0); MEAN PLATELET VOLUME 10.1 fL (7.4-10.4); RBC 5.3 10x6/uL (4.00-5.40); RDW 12.7 % (11.5-14.5); WBC 9.5 10x3/uL (4.8-10.8)
[2018-01-19 10:12] LABS: ANION GAP 16.5 mmol/L (8-16); CREATININE - SERUM 1.5 mg/dL (0.6-1.3); POTASSIUM - SERUM 3.5 mmol/L (3.5-5.1)
[2018-01-21] VITALS (19 sets, daily range): BP systolic 109–154; BP diastolic 50–88; Ht 162.6 cm; Wt 79.5 kg
[~2018-01-21] VITALS: Ht 162.6 cm; Wt 79.5 kg
--- NOTE | ~2018-01-21 | OP ---
PATIENT NAME: MICHELLE COOLEY MEDICAL RECORD: [id number] :54 LOCATION:DGabOPS ADMISSION DATE: SURGEON: MAN ASIF MD DATE OF OPERATION: 01/21/2018 PREOPERATIVE DIAGNOSIS: Right C6 and C7 radiculopathy secondary to foraminal stenosis. POSTOPERATIVE DIAGNOSIS: Right C6 and C7 radiculopathy secondary to foraminal stenosis. SURGEON: Man Asif MD PROCEDURE: Right posterior cervical foraminotomy at C5-C6 and C6-C7. DESCRIPTION OF TECHNIQUE: After induction of general endotracheal anesthesia, the patient was rolled prone in Ring head pins. The neck was prepped and draped in usual sterile fashion. Fluoroscopic x-ray and spinal needle were localized at C5-C6 interspace. Next, infiltration of 1:100,000 epinephrine and 1% lidocaine was infiltrated into the skin. An incision was carried out from the spinous process of C5 to C7. The fascia was incised with Bovie. Then, the spinous processes and lamina of C5, C6, and C7 were exposed in a subperiosteal manner. Following this, the level was confirmed at C5-C6 with fluoroscopic x-ray and spinal needle. Microscope and Midas Uriel drill were used to perform laminotomy, medial facetectomy, and foraminotomy at C5-C6 and C6-C7 on the right. Hypertrophied ligamentum flavum was removed with Cloward rongeurs. Following this, both the C6 and C7 nerve roots were exposed and decompressed well. Meticulous hemostasis was maintained throughout the wound. Wound was irrigated with copious amounts of Ancef irrigant solution. The fascia was closed with 2-0 Vicryl sutures. The subdermal layer was closed with 3-0 Vicryl suture. The skin was closed with mar. A sterile dressing was applied to the wound. The patient was awakened in good condition and taken to recovery. All counts were reported as correct. Estimated blood loss was minimal. TRANSINT:[id number] Voice Confirmation ID: [id number] DOCUMENT ID: [id number] MAN ASIF MD CC: [id number] DICTATION DATE: 02/04/18 1257 HAT PRESSER: 02/04/18 1638 [facility] 01/22/18 [place] [address]
[~2018-01-21 05:00] MED LIST changes: +BAYER CHEWABLE81 MG PO; +PRAVACHOL40 MG PO; -PRAVASTATIN SOD10 MG PO
[2018-01-21] MEDS ORDERED: NORCO 10-325 TA1 TAB PO (05:29)
[2018-01-21] MEDS ORDERED: ULTRAM50 MG (05:29)
[2018-01-22] VITALS (9 sets, daily range): BP systolic 90–134; BP diastolic 45–62
[2018-02-03] MEDS ORDERED: BAYER CHEWABLE81 MG PO (15:09)
[2018-02-03] MEDS ORDERED: CLARITIN 10 MG10 MG PO (15:12)
== END 2018-01-22 15:35 | disposition home or self-care (01) ==
LOC: OBSVTIME → D.OPS 05:00 → D.SDCHOLD 05:00 → D.CVICU 05:00 → D.SDCHOLD 07:30 → EDSTATUS 07:30 → D.SDCHOLD 07:30 → OBSVTIME 11:14 → D.CVICU 11:45 → D.SDCHOLD 11:45 → D.OPS 01-22 15:35 → D.CVICU 01-22 15:35
PROVIDERS: Anesthesiology
DX: M54.12 Radiculopathy, cervical region (principal); I10 Essential (primary) hypertension; K21.9 Gastro-esophageal reflux disease without esophagitis; E03.9 Hypothyroidism, unspecified; M19.90 Unspecified osteoarthritis, unspecified site

== ENCOUNTER → 2018-01-26 16:36 | Outpatient (CLI) | payer BC, MEDICARE ==
[2018-01-21 12:16] VITALS: BMI 30.1
[~2018-01-26 16:36] MED LIST changes: +NORCO 10-325 TA1 TAB PO; +ULTRAM50 MG
== END | disposition home or self-care (01) ==
LOC: D.LABREF 16:36
DX: M19.011 Primary osteoarthritis, right shoulder (principal); Z11.8 Encounter for screening for other infectious and parasitic diseases

== ENCOUNTER 2018-02-09 10:15 | Inpatient (IN) | payer BC, MEDICARE ==
[2018-02-03 15:46] LABS: HEMATOCRIT 41.9 % (36.0-48.0); HEMOGLOBIN 15.1 g/dL (12-16); MCH 30.1 pg (26.0-34.0); MCV 83.6 fL (80.0-100.0); MEAN PLATELET VOLUME 9.8 fL (7.4-10.4); RBC 5.01 10x6/uL (4.00-5.40); RDW 13.3 % (11.5-14.5); WBC 10.4 10x3/uL (4.8-10.8)
[~2018-02-09] VITALS: Ht 162.6 cm; Wt 78.6 kg
--- NOTE | ~2018-02-09 | MORECARE ---
CASE MANAGEMENT DISCHARGE SUMMARY PATIENT: MICHELLE COOLEY UNIT: [id number] ADM DATE: 02/09/18 AGE: 67 : 52 SEX: F ROOM/BED: D.2205 AUTHOR: FRANCK,DOC PHYSICIAN: REFERRING PHYSICIAN: MOON MAYFIELD DO DATE OF SERVICE: 02/11/18 Discharge Plan Patient Name: MICHELLE COOLEY Facility: [facility]:[place] : 1950 Planned Disposition: Home Anticipated Discharge Date: 02/11/18 Discharge Date: Expected LOS: 2 Initial Reviewer: [email or web address] Initial Review Date: 02/11/2018 Generated: 02/11/18 1:32 pm Comments DCP- Discharge Planning Updated by [email or web address]: Yoli Linares on 02/11/18 11:[address] Patient Name: MICHELLE COOLEY Admission Status: Elective Accout number: [id number] Admission Date: 02-09-2018 : 1950 Admission Diagnosis:PRIMARY OSTEOARTHRITIS, RIGHT SHOULDER Attending: MOON MAYFIELD Current LOS: 2 Anticipated DC Date: 02-11-2018 Planned Disposition: Home Primary Insurance[facility] [employer] [facility] Discharge Planning Comments: CM MET WITH PATIENT AND SON ABOUT DC PLANNING/NEEDS. STATES PLANS TO DC TO HOME TODAY. RIGHT ARM IN [place]. STATES SHE SEES ORTHO IN ONE WEEK. ANASTACIA RN STATES PT CAME AND SAW HER. STATES IF SHE NEEDS PT SHE WILL USE THE OUTPATIENT PT HERE. CM WILL FOLLOW AND ASSIST NEEDED WITH DC PLANNING/NEEDS. Timers Inspector: Yoli Linares Appended by Yoli Linares on 02/11/2018 12:28 CHIEF RISK OFFICER: I CALLED AND SPOKE WITH DR. MAYFIELD'S OFFICE AND TALKED TO HIS HAND III CUTTER CONCERNING PT. CHAPARRO'S OFFICE STATED SHE WILL NOT BEGIN PT UNTIL HER VISIT AT THEIR OFFICE AND THEY WILL SET IT UP. DCPIA - Discharge Planning Initial Assessment Updated by [email or web address]: Yoli Linares on 02/11/18 11:59 am * Is the patient Alert and Oriented? Yes * PCP MATIAS * [facility] * Preadmission Environment Home Alone * ADLs Independent * Equipment None * List name and contact numbers for known caregivers / representatives who currently or will assist patient after discharge: MELISSA DURAN, * Community resources currently utilized None * Additional services required to return to the preadmission environment? No * Can the patient safely return to the preadmission environment? Yes * Has this patient been hospitalized within the prior 30 days at any hospital? No Last DP export: 02/11/18 11:03 Patient Name: MICHELLE COOLEY Page [phone] at 1233 All edits/amendments must be made on the electronic document DICTATION DATE: 02/11/18 1232 DENTIST PRIVATE PRACTICE: WHITNEY 02/11/18 1232 RPT#: [id number] DC DATE: STATUS: ADM IN [facility] [address] [place] [address] END OF REPORT
--- NOTE | ~2018-02-09 | MORECARE ---
CASE MANAGEMENT DISCHARGE SUMMARY PATIENT: MICHELLE COOLEY UNIT: [id number] ADM DATE: 02/09/18 AGE: 67 : 52 SEX: F ROOM/BED: D.2204 AUTHOR: FRANCK,DOC PHYSICIAN: REFERRING PHYSICIAN: MOON MAYFIELD DO DATE OF SERVICE: 02/11/18 Discharge Plan Patient Name: MICHELLE COOLEY Facility: [facility]:[place] : 1950 Planned Disposition: Home Anticipated Discharge Date: 02/11/18 Discharge Date: Expected LOS: 2 Initial Reviewer: [email or web address] Initial Review Date: 02/11/2018 Generated: 02/11/18 1:03 pm Comments DCP- Discharge Planning Updated by [email or web address]: Yoli Linares on 02/11/18 11:[address] Patient Name: MICHELLE COOLEY Admission Status: Elective Accout number: [id number] Admission Date: 02-09-2018 : 1950 Admission Diagnosis:PRIMARY OSTEOARTHRITIS, RIGHT SHOULDER Attending: MOON MAYFIELD Current LOS: 2 Anticipated DC Date: 02-11-2018 Planned Disposition: Home Primary Insurance: [employer] [facility] Discharge Planning Comments: CM MET WITH PATIENT AND SON ABOUT DC PLANNING/NEEDS. STATES PLANS TO DC TO HOME TODAY. RIGHT ARM IN [place]. STATES SHE SEES ORTHO IN ONE WEEK. ANASTACIA RN STATES PT CAME AND SAW HER. STATES IF SHE NEEDS PT SHE WILL USE THE OUTPATIENT PT HERE. CM WILL FOLLOW AND ASSIST NEEDED WITH DC PLANNING/NEEDS. Clothing Cutter: Yoli Linares DCPIA - Discharge Planning Initial Assessment Updated by [email or web address]: Yoli Linares on 02/11/18 11:59 am * Is the patient Alert and Oriented? Yes * PCP MATIAS * [facility] * Preadmission Environment Home Alone * ADLs Independent * Equipment None * List name and contact numbers for known caregivers / representatives who currently or will assist patient after discharge: MELISSA DURAN, * Community resources currently utilized None * Additional services required to return to the preadmission environment? No * Can the patient safely return to the preadmission environment? Yes * Has this patient been hospitalized within the prior 30 days at any hospital? No Patient Name: MICHELLE COOLEY Page [id number] at 1203 All edits/amendments must be made on the electronic document DICTATION DATE: 02/11/181202 CUSTOMER ENERGY SPECIALIST: WHITNEY 02/11/181202 RPT#: [id number] DC DATE: STATUS: ADM IN [facility] [address] [place] [address] END OF REPORT
--- NOTE | ~2018-02-09 | MORECARE ---
CASE MANAGEMENT DISCHARGE SUMMARY PATIENT: MICHELLE COOLEY UNIT: [id number] ADM DATE: 02/09/18 AGE: 67 : 52 SEX: F ROOM/BED: D.2207 AUTHOR: FRANCK,DOC PHYSICIAN: REFERRING PHYSICIAN: MOON MAYFIELD DO DATE OF SERVICE: 02/14/18 Discharge Plan Patient Name: MICHELLE COOLEY Facility: [facility]:[place] : 1950 Planned Disposition: Home Anticipated Discharge Date: 02/11/18 Discharge Date: 02/11/2018 Expected LOS: 2 Initial Reviewer: [email or web address] Initial Review Date: 02/11/2018 Generated: 02/14/18 3:49 pm Comments DCP- Discharge Planning Updated by [email or web address]: Yoli Linares on 02/11/18 11:[address] Patient Name: MICHELLE COOLEY Admission Status: Elective Accout number: [id number] Admission Date: 02-09-2018 : 1950 Admission Diagnosis:PRIMARY OSTEOARTHRITIS, RIGHT SHOULDER Attending: MOON MAYFIELD Current LOS: 2 Anticipated DC Date: 02-11-2018 Planned Disposition: Home Primary Insurance: [employer] [facility] Discharge Planning Comments: CM MET WITH PATIENT AND SON ABOUT DC PLANNING/NEEDS. STATES PLANS TO DC TO HOME TODAY. RIGHT ARM IN [place]. STATES SHE SEES ORTHO IN ONE WEEK. ANASTACIA RN STATES PT CAME AND SAW HER. STATES IF SHE NEEDS PT SHE WILL USE THE OUTPATIENT PT HERE. CM WILL FOLLOW AND ASSIST NEEDED WITH DC PLANNING/NEEDS. Load Blocker: Yoli Linares Appended by Yoli Linares on 02/11/2018 12:28 EXCAVATOR OPERATOR: I CALLED AND SPOKE WITH DR. MAYFIELD'S OFFICE AND TALKED TO HIS JUNIOR PROJECT MANAGER CONCERNING PT. CHAPARRO'S OFFICE STATED SHE WILL NOT BEGIN PT UNTIL HER VISIT AT THEIR OFFICE AND THEY WILL SET IT UP. DCPIA - Discharge Planning Initial Assessment Updated by [email or web address]: Yoli Linares on 02/11/18 11:59 am * Is the patient Alert and Oriented? Yes * PCP MATIAS * [facility] * Preadmission Environment Home Alone * ADLs Independent * Equipment None * List name and contact numbers for known caregivers / representatives who currently or will assist patient after discharge: MELISSA DURAN, * Community resources currently utilized None * Additional services required to return to the preadmission environment? No * Can the patient safely return to the preadmission environment? Yes * Has this patient been hospitalized within the prior 30 days at any hospital? No Last DP export: 02/11/18 11:32 Patient Name: MICHELLE COOLEY Page 49038 at 1449 All edits/amendments must be made on the electronic document DICTATION DATE: 02/14/181447 GEAR CHANGER: WHITNEY 02/14/181447 RPT#: [id number] DC DATE:02/11/18 STATUS: DIS IN [facility] [address] [place] [address] END OF REPORT
--- NOTE | ~2018-02-09 | OP ---
PATIENT NAME: MICHELLE COOLEY MEDICAL RECORD: [id number] :54 LOCATION:D.MS [place]2208 ADMISSION DATE:02/09/18 SURGEON: ISAAC MAYFIELD DO DATE OF OPERATION: 02/09/2018 PROCEDURE PERFORMED: Right total shoulder arthroplasty. PREOPERATIVE DIAGNOSIS: Severe end-stage right shoulder osteoarthritis. POSTOPERATIVE DIAGNOSIS: Severe end-stage right shoulder osteoarthritis. INDICATIONS: Ms. Cooley is a 67-year-old right-hand dominant female who has been troubled with right shoulder pain for quite sometime and lack of motion. On x-ray, it showed severe osteoarthritis as well as on MRI. She tried injections and all manner of nonoperative treatment and is down to the point where it is affecting her activities of daily living. She wants something done to help us. I informed her risks and benefits of the procedure including infection, bleeding, damage to nerves or vessels, axillary nerve damage, need for further surgery. She is okay with those risks and consented to the procedure. SURGEON: Isaac Mayfield DO TRANSFER WORKER: Daniel Rebolledo, Certified Electrical Calibrator DESCRIPTION OF PROCEDURE: The patient was given block by anesthesia. In the preoperative area, she was taken to the operative suite, laid in the supine position, sedated and then intubated, and placed in beachchair position. She was given a gram of vancomycin preoperatively. The right shoulder was then prepped and draped in sterile fashion. Time-out was performed and everyone was in agreement with correct side, site, patient, and procedure. Once that was completed, the incision was began at the deltopec interval with a 10 blade scalpel and then plasma blade was used to dissect down to the cephalic vein. The cephalic vein was taken laterally. Any bleeding was coagulated with the Aquamantys. The adhesions of the deltoid were divided and freed up with a Stephenson. After that, the Brown retractor was placed in and the pec tendon was released, the proximal centimeter. The bicep tendon was tenodesed to stump on the humerus. The bicep tendon was then cut and the rotator interval was opened. The subscapularis tendon was then tagged with #2 Ethibond and was peeled off the lesser tuberosity, exposing the humeral head. The humeral head was noted to be quite flat due to the osteoarthritis. The cutting guide was then entered into the intramedullary canal and the head was cut. After the head was cut, the glenoid was exposed and the labrum was removed from around the glenoid. A centering pin was then placed and the center hole pin was drilled. The guide was then put in and 3 other peripheral holes were drilled, that was after the glenoid was reamed. After that was done, the cement was mixed and the glenoid was cemented into place. It was 40 in size. Cement was then dried and the humerus was exposed and broached to a 3. The 3 was a little bit loose. Then, 4 was put in with a 43 head. This fit nicely and had good 50% shuck posteriorly with bounce back. We decided to go with this size. The trial was removed. Once the trial was removed, 3 sutures were placed in the lesser tuberosity in preparation for the subscapularis repair and then the implant was inserted. Once the implant was inserted, the subscapularis tendon was repaired to the lesser tuberosity in a Tj-Jaren stitch fashion with #2 Ethibond and then the rotator interval was closed. There was a small tear in the supraspinatus which OPERATIVE REPORT [id number] LENORAMICHELLE L was repaired with #2 Ethibond and the rotator interval was closed in a lfauqn-ge-jrgxu fashion with #2 Ethibond, and had a nice rotator cuff repair with that in the subscapularis. The shoulder was then thoroughly irrigated and the deltopec interval was reapproximated with #1 Vicryl in simple fashion and then #2 Vicryl closed the skin in inverted interrupted fashion. Then, Prineo and Dermabond glue were placed on the skin. The patient was then awakened and taken to recovery in stable condition. There were no complications. Blood loss was approximately 200 mL. TRANSINT:[id number] Voice Confirmation ID: [id number] DOCUMENT ID: [id number] ISAAC MAYFIELD DO at 1726 CC: [id number] DICTATION DATE: 02/09/18 1607 LANDSCAPE NURSERYMAN: 02/09/18 1836 ADM IN [facility] [address] [place] [address]
[~2018-02-09 10:15] MED LIST changes: +CLARITIN 10 MG10 MG PO
[2018-02-09 11:40] VITALS: BP 120/65; BMI 30.1
[2018-02-09 16:34] VITALS: BP 122/60
[2018-02-09 18:31] VITALS: BP 120/66; Ht 162.6 cm; Wt 78.6 kg
[2018-02-09 21:34] VITALS: BP 133/60
[2018-02-10 04:37] LABS: HEMATOCRIT 35.2 % (36.0-48.0); HEMOGLOBIN 12.5 g/dL (12-16); MCH 29.2 pg (26.0-34.0); MCHC 35.5 g/dL (31.0-37.0); MCV 82.2 fL (80.0-100.0); MEAN PLATELET VOLUME 9.8 fL (7.4-10.4); RBC 4.28 10x6/uL (4.00-5.40); RDW 13.1 % (11.5-14.5); WBC 11.6 10x3/uL (4.8-10.8)
[2018-02-10 05:10] VITALS: BP 125/54
[2018-02-10 08:48] VITALS: BP 152/67
[2018-02-10 12:45] VITALS: BP 168/75
[2018-02-10 16:50] VITALS: BP 157/75
[2018-02-10 21:11] VITALS: BP 148/61
[2018-02-11 06:45] LABS: HEMATOCRIT 33.6 % (36.0-48.0); HEMOGLOBIN 11.8 g/dL (12-16); MCH 29.4 pg (26.0-34.0); MCHC 35.1 g/dL (31.0-37.0); MCV 83.8 fL (80.0-100.0); MEAN PLATELET VOLUME 10.1 fL (7.4-10.4); RBC 4.01 10x6/uL (4.00-5.40); RDW 13.5 % (11.5-14.5); WBC 9.9 10x3/uL (4.8-10.8)
[2018-02-11 08:51] VITALS: BP 156/83
[2018-02-11] MEDS ORDERED: NORCO 10-325 TA1 TAB PO (11:06)
[2018-02-11] MEDS ORDERED: OXYCODONE HCL5 M1 PO (11:06)
[2018-02-11] MEDS ORDERED: VISTARIL50 MG PO (11:07)
[2018-02-11] MEDS ORDERED: URECHOLINE25 MG PO (12:32)
== END 2018-02-11 14:11 | disposition home or self-care (01) | DRG 483 ==
LOC: D.SDCHOLD 10:15 → D.MS 10:15 → D.SDCHOLD 11:45 → D.MS 16:17
PROVIDERS: Anesthesiology; Orthopaedic Surgery
PROC: 0RRJ0JZ Replacement of Right Shoulder Joint with Synthetic Substitute, Open Approach (ICD-10-PCS; principal; 2018-02-09 11:45)
DX: M19.011 Primary osteoarthritis, right shoulder (principal); I10 Essential (primary) hypertension; I25.10 Atherosclerotic heart disease of native coronary artery without angina pectoris

== ENCOUNTER → 2018-02-25 12:24 | Outpatient (CLI) | payer BC ==
[2018-02-09 18:31] VITALS: BMI 29.7
[~2018-02-25 12:24] MED LIST changes: +OXYCODONE HCL5 M1 PO; +URECHOLINE25 MG PO; +VISTARIL50 MG PO
== END | disposition home or self-care (01) ==
LOC: D.RAD 12:24
DX: R05 Cough (principal); R06.00 Dyspnea, unspecified

== ENCOUNTER 2018-07-05 06:45 | Day surgery (SDC) | payer BC ==
[~2018-07-05] VITALS: Ht 165.1 cm; Wt 78.6 kg
--- NOTE | ~2018-07-05 | OP ---
PATIENT NAME: MICHELLE COOLEY MEDICAL RECORD: [id number] :54 LOCATION:D.OPS ADMISSION DATE: SURGEON: FERN HARRISON MD DATE OF OPERATION: 07/05/2018 PROCEDURES: Colonoscopy with polyp ablation, colonoscopy with polypectomy, colonoscopy with biopsy. DIRECTOR STATISTICAL PROGRAMMING: Fern Harrison MD SCOPE: An Olympus video colonoscope. INDICATION FOR THE PROCEDURE: Change in bowel pattern with diarrhea. No hematochezia. The patient received propofol 450 mg for this procedure, O2 of 4 liters. FINDINGS: Informed consent was given. The patient was made comfortable with the above medications. After reaching an adequate level of sedation by slow IV push, the patient was placed on her left side. The rectal exam revealed good sphincter tone. No fissures or fistulas were appreciated. No external skin tags were seen. The colonoscope was advanced to the cecum, where the ileocecal valve and appendiceal orifice were identified. Unfortunately, the appendiceal orifice was not well visualized due to a copious amount of retained stool in this area. We did spend some considerable amount of time in an attempt to cleanse this area, but were generally unsuccessful. We were able to look piecemeal underneath the debris, but as mentioned above, the area was not completely visualized. We did share this with the patient. On withdrawal of the scope, mucosa was carefully inspected. The patient had fairly normal tissue throughout the entire colon with only minimal scattered inflammation. We did biopsy the rectum looking for microscopic colitis. In the distal sigmoid area, 0.5-cm polyp was seen and removed with hot biopsy forceps technique. On retroflexion, some mild internal hemorrhoids were seen. The patient also had a very small 0.5-cm polyp near the anal opening and in close proximity to an internal hemorrhoid and this was ablated. The patient has had considerable abdominal surgeries to include cholecystectomy, hysterectomy, and appendectomy and did have mild adhesions most pronounced in the left lower quadrant. The scope was then withdrawn. The patient also most probably has component of irritable bowel syndrome as spasm was noted, again most pronounced on the left colon during this procedure. IMPRESSION: 1. History of diarrhea. Biopsies taken of minimal inflammation within the rectal vault looking for microscopic colitis. Of note, the patient did have a stool study earlier, which was completely negative for bacteria, viruses, and parasites. 2. Mild rectal inflammation, biopsied. 3. No diverticulosis seen. 4. Small distal 0.5-cm polyp removed with hot biopsy forceps technique. 5. Distal rectal polyp near the anal opening and in close proximity to an internal hemorrhoid, ablated. 6. Spasm associated with irritable bowel syndrome, most pronounced within the left lower quadrant. OPERATIVE REPORT [id number] COOLEYMICHELLE 7. Adhesions also on the left lower quadrant. PLAN: 1. I have had a discussion with the patient. We will ask her to avoid caffeine. 2. Ljcc-tqe-isdgixz Imodium no more than 6 a day, but she should liberally take this. 3. Levsin 0.125 mg sublingual one 4-6 hours p.r.n. spasm. 4. Questran 4 grams b.i.d. not to be taken within 2 hours of any other medication. 5. Use great caution with anti-inflammatory drugs as these can cause a collagenous colitis. 6. Increase the fiber in the diet as well as fluid. 7. Return to clinic in 3 weeks for further discussion. TRANSINT:[id number] Voice Confirmation ID: [id number] DOCUMENT ID: [id number] FERN HARRISON MD CC: BLANCA SALCEDO and CHANO BURNS [id number] DICTATION DATE: 07/05/18 1010 VEST BASTER: 07/05/18 1205 [facility] 07/05/18 [id number] [place] [address]
[~2018-07-05 06:45] MED LIST changes: +ASPIRIN325 MG PO; +PEPCID AC20 MG PO; -PEPCID20 MG PO
[2018-07-05 07:16] LABS: ANION GAP 14.8 mmol/L (8-16); BASOPHILS 0.3 % (0-2); CALCIUM 10.4 mg/dL (8.5-10.1); CARBON DIOXIDE 28.3 mmol/L (21.0-32.0); CREATININE - SERUM 1.4 mg/dL (0.6-1.3); EOSINOPHILS 3.5 % (0-7); HEMATOCRIT 44.6 % (36.0-48.0); HEMOGLOBIN 15.9 g/dL (12-16); IMMATURE GRANULOCYTES 0.1 % (0-5); LYMPHOCYTES 30.1 % (15-50); MCH 29.4 pg (26.0-34.0); MCHC 35.7 g/dL (31.0-37.0); MCV 82.6 fL (80.0-100.0); MONOCYTES 6.6 % (2-11); NEUTROPHILS 59.4 % (40-80); PLATELET COUNT 175 10x3/uL (130-400); POTASSIUM - SERUM 4.1 mmol/L (3.5-5.1); RDW 13.2 % (11.5-14.5); WBC 7.5 10x3/uL (4.8-10.8)
[2018-07-05 07:18] LABS: APTT 36.3 SECONDS (22.8-39.4); INR 0.99 (0.85-1.17); PROTIME 12.6 SECONDS (11.6-15.0)
[2018-07-05] MEDS ORDERED: MAG-OX 400 MG400 MG PO (07:55)
[2018-07-05 08:22] VITALS: BP 138/87; Ht 165.1 cm; Wt 78.6 kg
--- NOTE | 2018-07-05 10:52 | NUR ---
DC INSTRUCTIONS GIVEN TO PT/FAMILY. STATE UNDERSTANDING. DC'D IV CATH FULLY INTACT.
--- NOTE | 2018-07-05 11:25 | NUR ---
PT LEFT UNIT VIA WC AT 1123
== END 2018-07-05 11:25 | disposition home or self-care (01) ==
LOC: D.OPS 06:45
PROVIDERS: Anesthesiology; ATTEND Internal Medicine Gastroenterology
DX: K63.5 Polyp of colon (principal); K62.1 Rectal polyp; K57.30 Diverticulosis of large intestine without perforation or abscess without bleeding; K58.9 Irritable bowel syndrome, unspecified; K64.8 Other hemorrhoids; Z01.812 Encounter for preprocedural laboratory examination